=== PATIENT | female | born 1960 | race Caucasian/White ===

== ENCOUNTER 2024-12-30 10:48 | Outpatient (AMB) | payer MEDICARE, MEDICAID, SELFPAY ==
--- NOTE | 2024-12-30 10:53 | A.SPINEOV_ITS ---
Vital Signs 12/30/24 11:10 Height 5 ft 8 in Weight 190 lb BMI 28.9 Intake Visit Reasons: LBP Intake Note: Mrs. Ibanez is here today c/o low back pain that radiates to buttocks and groins then down both legs. Internal Medicine Veterinary Technician Required: No Allergies codeine Allergy (Unknown, Verified 12/30/24 11:12) Unknown diphenhydramine (From Benadryl) Allergy (Unknown, Verified 12/30/24 11:12) Unknown lurasidone (From Latuda) Allergy (Unknown, Verified 12/30/24 11:12) Unknown morphine Allergy (Unknown, Verified 12/30/24 11:12) Unknown pregabalin (From Lyrica) Allergy (Unknown, Verified 12/30/24 11:12) Unknown varenicline (From Chantix) Allergy (Unknown, Verified 12/30/24 11:12) Unknown Physical Exam Vital Signs: BMI result Body Mass Index 28.9 Assessment & Plan Assessment & Plan (1) Chronic SI joint pain: Code(s): M53.3 - Sacrococcygeal disorders, not elsewhere classified; G89.29 - Other chronic pain Category: Medical Plan Dear Catarina, Thank you for referring Mrs Ibanez to our office today. She is a very nice 64-year-old female with history of fibromyalgia, presents after 2 falls which have given her significant pain over her right buttock as well as her right groin region. The pain is aggravated with standing from a seated position, walking for any length of time. It is also very bothersome at night when she rolls over on her right side. She underwent a workup, also had physical therapy etc.. Lumbar MRI showed some degenerative disc disease but nothing that would explain her pain. She had no improvement with physical therapy. She had significant signs of SI joint etiology and on her exam, and was sent to us today for evaluation of possible SI joint fusion. At this point she has had no injections done to the SI joint. The main thing she has had done is Physical therapy and tincture of time. She tells me that she saw her orthopedic surgeon to check on her hip replacement hardware and she was told that everything there looked okay. She does take Motrin and Tylenol but has to be careful because of NAFLD the and Reagan's esophagitis. PMH: History of bipolar disorder, fibromyalgia, psoriasis, rotator cuff surgery, lung cancer, status post left lower lobe resection, disease was local and she did not require any chemotherapy or radiation. She has a history of NAFLD the, bilateral hip replacement, rotator cuff surgery, ureteral surgery that required what she describes as an open laparotomy to repair. 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 Denies any history of cardiovascular disease, stroke, bleeding disorders, blood clots, renal disease, unusual infections. Social hx: Quit smoking about 4 years ago, she takes marijuana gummies daily, does not drink alcohol Medications: Cymbalta, furosemide, Ambien, levothyroxine, lorazepam, timolol, latanoprost, albuterol, Anoro inhaler, pantoprazole, Stelara which is a shot done every 12 weeks for her psoriasis and Caplyta which is for her bipolar disorder. Allergies: Codeine, Chantix, Lyrica, Latuda, morphine and Benadryl Physical exam: Awake alert oriented, she has a very hard time just standing up from a chair, she gets tremendous pain in her groin and in her right buttock region. Positive finger Toño test, positive DAINA testing ipsilateral with pain in her right leg, groin and buttock. Reflexes are normal, motor examination is normal with the exception of pain with right hip flexion. Imaging review: Lumbar MRI done at [facility] shows some mutt-av-djagbkyi disc degeneration but no significant nerve compression. SI joints were reviewed on her CT scan of the abdomen and pelvis as well as a lumbar MRI but no significant abnormality seen. Impression: 64-year-old female, history of fibromyalgia, status post fall with pain in the right buttock region and to some degree in the right groin region. She has lumbar MRI showing some otbx-an-wzzjxwdd degenerative disc disease but no sign of disc herniation or anything that would explain pain in the right buttock. It is very localized and is aggravated with hip movements including DAINA testing. She was told that her hip replacement surgery hardware was fine. She could be dealing with just soft tissue injury from the fall, but does have some features of SI joint instability or inflammation as outlined above. The way we could attempt to decipher this a little better is to get an injection in the right SI joint. She did have significant hair loss in the past with cortisone injections. She is willing to go back on [facility] to get her hair back if needed after the shot because the pain is that bad that it affects her life in every way. I am wondering if we could just do a lidocaine injection into the joint as an alternative? If we can get 2 injections with 80% improvement, Dr. Ferrell usually will offer SI joint fusion. I will refer her to Dr. Carter who she has seen in the past and had a good relationship with. I will see her back after the 2 SI joint injections. Thank you for allowing us to care for your patient. The total time spent with this visit with this patient was 45 minutes reviewing history, physical exam, lumbar imaging review, and implementation of treatment plan or further diagnostic testing Miko Ferrell MD,PhD [facility] Orders: Referrals Physiatry Referral G89.29 - Other chronic pain, M53.3 - Sacrococcygeal disorders, not elsewhere classified Coding Level of Care Code New Pt Level 4 (67726) Diagnoses Chronic SI joint pain M53.3; G89.29
[2024-12-30 11:10] VITALS: BMI 28.9
--- OUTSIDE RECORDS SUMMARY | 2024-12-30 13:17 | XMS_ITS | Clinical Summary ---
Author Organization [facility] Address [address] [place] [address] Phone Care Team Providers Care Welding Supervisor Name Role Phone Kyung Billy MD Primary Care Prov ider Allergies Active Allergy Reactions Criticality Noted Date Comments Clonidine Other 01/29/2007 bradycardia Codeine 01/03/2005 epigrastric pain Diphenhydramine Hives 04/26/2010 Gabapentin Hallucinations 11/24/2016 Morphine 05/09/2024 Pregabalin Diarrhea 01/29/2007 Sulfacetamide Sodium Rash 01/03/2005 Varenicline Rash 02/25/2007 Medications albuterol HFA (PROAIR HFA ; PROVENTIL HFA ; VENTOLIN HFA) 90 mcg/actuation inhaler Inhale 1 puff by mouth. 09/14/19 24 Active betamethasone, augmented, (DIPROLENE-AF) 0.05 % cream APPLY CREAM TOPICALLY TO AFFECTED AREA TWICE DAILY FOR 2 WEEKS 03/12/19 23 Active DULoxetine (CYMBALTA) [address] capsule Take 1 capsule (30 mg total) by mouth 1 (one) time each day. Active LORazepam (ATIVAN) 1 mg tablet Take 1 tablet (1 mg total) by mouth 2 (two) times a day. Active umeclidinium-burt anteroL (Anoro Ellipta) 62.5-25 mcg/actuation inhaler Inhale 1 puff by mouth. 05/09/19 24 Active zolpidem CR (AMBIEN CR) 12.5 mg CR tablet Take 1 tablet (12.5 mg total) by mouth. Active pantoprazole (PROTONIX) 40 mg EC tablet Take 1 tablet (40 mg total) by mouth 2 (two) times a day. Take on empty stomach, wait 30 mins and then eat to activate the medication- before breakfast and supper 60 each 04/16/19 25 Active ondansetron (ZOFRAN) 4 mg tabletIndication s:Other fatigue,Decrease d appetite,Gastroe sophageal reflux disease with esophagitis without hemorrhage,Abdom inal bloating,Constip ation, unspecified constipation type,Depression, unspecified depression type,Nausea,Delong ett's esophagus without dysplasia Take 1 tablet (4 mg total) by mouth 3 (three) times a day. 60 tablet 04/16/19 25 Active levothyroxine (SYNTHROID, LEVOTHROID) 100 mcg tablet take 1 tablet Monday to Monday and 1-1/2 tablets on Sundays. 90 each 3 06/21/19 25 Active Caplyta 42 mg capsule 07/19/19 25 Active ursodioL (ACTIGALL) 300 mg capsuleIndicatio ns:Antimitochond rial antibody positive Take 2 capsules (600 mg total) by mouth 1 (one) time each day. 180 each 1 07/31/19 25 025 Active latanoprost (XALATAN) 0.005 % ophthalmic solution Administer 1 drop into both eyes 1 (one) time each day. 2.5 mL 08/20/19 25 Active timolol (TIMOPTIC) 0.5 % ophthalmic solution Administer 1 drop into both eyes 1 (one) time each day. 10 mL 08/20/19 25 Active QUEtiapine (SEROquel) 25 mg tablet Take 1 tablet (25 mg total) by mouth. at bedtime 08/21/19 25 Active cyclobenzaprine (FLEXERIL) 10 mg tablet Take 1 tablet (10 mg total) by mouth 2 (two) times a day if needed for muscle spasms for up to 10 days. 20 tablet 11/13/19 25 Active furosemide (LASIX) 20 mg tablet Take 1 tablet by mouth once daily 90 tablet 11/29/19 25 Active Stelara 45 mg/0.5 mL syringe Inject 0.5 mL (45 mg total) under the skin every 3 (three) months. 11/19/19 Active ustekinumab (Stelara) 90 mg/mL syringe 12/14/19 22 Discontinued polyethylene glycol (MIRALAX) 17 gram packet Take 17 g by mouth 1 (one) time each day. 510 g 11 04/16/19 Discontinued tiZANidine (ZANAFLEX) 4 mg tablet Take 1 tablet (4 mg total) by mouth 3 (three) times a day if needed for muscle spasms. 30 tablet 1 09/19/19 25 Discontinued QUEtiapine XR (SEROquel XR) 200 mg 24 hr tablet TAKE 1 TABLET BY MOUTH 3 HOURS BEFORE BEDTIME DIRECTED 04/04/19 Discontinued lidocaine (LIDODERM) 5 % patch Apply 1 patch topically 1 (one) time each day. Remove & discard patch within 12 hours or as directed by MD. Wear 12 hours on and then 12 hours off. 60 each 10/24/19 25 Discontinued bisacodyL (DULCOLAX) 5 mg EC tablet Take 1 tablet (5 mg total) by mouth 1 (one) time each day if needed for constipation. Do not crush, chew, or split. 30 tablet 11/13/19 25 Discontinued lidocaine 4 % patch Apply 1 patch topically 1 (one) time each day. 30 each 11/13/19 25 bisacodyL (DULCOLAX) 5 mg EC tablet TAKE 1 TABLET BY MOUTH EACH DAY IF NEEDED FOR CONSTIPATION. DO NOT CRUSH, CHEW, OR SPLIT. 30 tablet 12/21/19 25 Discontinued Active Problems Problem Noted Date Diagnosed Date Sacroiliitis, not elsewhere classified (CMS/HCC V24) 10/01/2024 Assessment & Plan (10/01/2024 5:05 PM EDT): Ms. Ibanez describes right sided low back pain with radiation to the groin, lateral and anterior thigh to the knee crossing over at the guillen. She has numbness in the toes of both lower extremities. She had exquisite pain with palpation of the right SI joint. Hip mechanical testing on the right side did reproduce her symptoms. She had pain with a Gaenslen's test and an SI joint compression test. We talked about sacroiliitis. I explained that treatment options included an SI belt, physical therapy and a steroid injection. She said that she was not a candidate for steroid injection because she had had alopecia associated with steroid injections on several occasions and was not willing to try that again. I told her that a final option was an SI joint fusion but that they might not consider that without a successful trial with a steroid injection. At any rate, I gave her a prescription for an SI joint belt. She will start taking NSAIDs. She excepted a prescription for physical therapy directed at the SI joint. She will follow-up with us on an as-needed basis. Chronic pain 09/20/2024 Obstructive sleep apnea 05/23/2024 History of lung cancer 01/27/2024 Assessment & Plan (08/03/2024 11:57 AM EDT): 63 y/o female who on July 06, 2022 underwent a robotic left lower lobectomy for stage 1 acinar pulmonary adenocarcinoma (pT1a, pN0). Her most recent chest CT scan obtained on July 26, 2024 continues to show a few scattered stable nodules (less than 5mm, stable in appearances), more specifically a stable groundglass nodule at the left apex measuring 8 mm. There are no new or worsening pulmonary nodules or mediastinal lymphadenopathy to suggest recurrence of her disease at this time. She was educated about pulmonary nodules and informed that while her current nodules do remain stable that does not mean that these are not possible cancer cells and that we will continue to monitor them with continued chest CT surveillance. Her next chest CT surveillance scan will be due in 6 months time which will be December 2024 and have a visit at the thoracic surgery department thereafter to discuss results. She was instructed to call the office prior to her next appointment with any concerns or questions. Assessment & Plan (01/27/2024 1:42 PM EST): 63-year-old female who on July 06, 2022 underwent a robotic left lower lobectomy for stage I acinar pulmonary adenocarcinoma (pT1a, PN 0). Her most recent chest CT scan formed in December 2023 continues to show scattered sub-5 mm solid pulmonary nodules which remain stable as well as a left upper lobe groundglass nodule which also remained stable. There are no new or worsening pulmonary nodules or mediastinal lymphadenopathy to suggest recurrence of her disease at this time. She was educated about pulmonary nodules and informed that while her current nodules do remain stable that does not mean that these are not possible cancer cells and that we will continue to monitor them with continued chest CT surveillance. Her next chest CT surveillance scan will be due in 6 months time which will be June 2024 and have a visit at the thoracic surgery department thereafter to discuss results. Prediabetes 12/07/2023 Assessment & Plan (12/21/2024 9:10 PM EDT): Recommended to follow a low carb diet, will recheck A1C. Continue to monitor. Assessment & Plan (06/20/2024 10:03 AM EDT): Orders: Hemoglobin A1c; Future Class 1 obesity due to exces s calories with serious comorbidity and body mass index (BMI) of 34.0 to 34.9 in adult 12/07/2023 Reagan esophagus 12/07/2023 History of total left hip replacement 03/02/2023 Grade I diastolic dysfunction 02/03/2023 Arthritis of hip 12/16/2022 Pulmonary nodule 08/12/2021 Overview (11/29/2023): Last Assessment & Plan: Ms. Ibanez is a 61 y/o female who is part of the [employer] who had a prior navigational biopsy on 08/20/21 without definitive diagnosis now presents for her 3 month follow-up CT scan which was performed on 06/15/[address]. [address] scan shows slight enlargement in the 7 mm LLL nodule which now measures 10 mm X 5.7mm X 8 mm. This has continued to increase in size since 2019. Patient and would like this removed. After speaking with Dr. Rowe, he is able to offer her a diagnostic Robotic VATS with left lower superior segmentectomy and possible left lower lobectomy if malignancy is confirmed. I spoke with the patient and her daughter and offered her an office visit to discuss further with Dr. Rowe but they declined and said they would like to proceed with scheduling surgery. I did answer their questions and told the patient's daughter that if anyone in the family has any questions, please do not hesitate to contact the office. Otherwise, the Thoracic Surgery office will contact her with a surgical date. NAFLD (nonalcoholic fatty liver disease) 021 Assessment & Plan (08/19/2024 4:08 PM EDT): Chronic obstructive pulmonar y disease ([facility] V24, [facility] V28) 07/31/2019 Assessment & Plan (06/20/2024 10:03 AM EDT): Assessment & Plan (03/14/2024 1:02 PM EST): COPD stable, no recent exacerbations. On albuterol as needed and an oral Ellipta. Recommended to continue same medications. Ground glass opacity present on imaging of lung 07/31/2019 Overview (11/29/2023): Followed by CT Last Assessment & Plan: 61-year-old woman former smoker with strong family history of lung cancer now with a stable groundglass nodule in the superior segment of the left lower lobe. 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 Options moving forward would be for continued observation which would be a 6-month follow-up CT scan of the chest versus surgical resection which would require at least a superior segmentectomy for diagnostic purposes and possible lobectomy for turned out to be a malignancy. After a lengthy discussion she opted for continued observation understanding the risks going along with that. I do think this is quite reasonable given its appearance and stability over the past 3 months. Malignant melanoma of right lower extremity including hip ([facility] V24, [facility] V28) 03/22/2018 Mild cognitive impairment 01/05/2017 Overview (11/29/2023): Neuropsych 12/31/16 - MCI could be related to sz d/o, psych d/o and hx of ECT, may also be some mental slowing as a result of medication. 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 Neuro - Dr. Zhang. EEG - left temporal irritability. Prev on Trileptal then Keppra. Frequent seizures 2015 - Dr. Martinez - EEG with hyperventilation-evoked episode - no epileptic activity. Advised taper Keppra and f/u with Psych. 10/2016 - Dr. Martinez - ordered VEP, somatosensory evoked potential UEs and LEs, EPs r/o MS, neuropsych testing Insomnia 10/20/2011 Idiopathic retroperitoneal fibrosis 06/07/2011 Overview (11/29/2023): Presented as ureteral blockage, s/p ureterolysis, Workup by Uro, no malignancy Cervical disc herniation 08/06/2010 Lumbar facet arthropathy 08/06/2010 Herniated lumbar intervertebral disc 08/10/2008 Bipolar affective disorder ([facility] V24, [facility] V28) 06/25/2008 Assessment & Plan (08/19/2024 4:08 PM EDT): PTSD (post-traumatic stress disorder) 05/26/2008 Fibromyalgia 08/03/2007 Esophageal reflux 01/07/2005 Hypothyroidism 01/07/2005 Assessment & Plan (12/21/2024 9:10 PM EDT): Currently on Levothyroxine 100mcg Mon to Sat, 150 Sundays. Will recheck levels. Orders: Thyroid stimulating hormone; Future Assessment & Plan (06/20/2024 10:03 AM EDT): Orders: Vitamin B12; Future Assessment & Plan (03/14/2024 1:02 PM EST): Currently on levothyroxine 112 mcg a day. Will check a new TSH today. Orders: Thyroid stimulating hormone; Future Iron deficiency anemia 01/07/2005 Resolved Problems Problem Noted Date Diagnosed Date Resolved Date Intercostal neuralgia 09/20/20242024 Elevated LFTs 12/07/2023 09/23/2024 Diffuse otitis externa of both ears 10/19/2023 09/23/2024 Otorrhea 10/19/2023 09/23/2024 Exostosis of both external auditory canals 07/06/2023 09/23/2024 Overview (09/20/2024): Exostosis of external canal, bilateral; Note: Date Diagnosed: 07/06/2023 2:36 PM (H61.813) Infective otitis externa of both ears 07/06/2023 09/23/2024 Overview (09/20/2024): Other infective otitis externa, bilateral; Note: Date Diagnosed: 07/06/2023 2:36 PM (H60.393) Osteoarthritis of right hip 03/31/2023 09/23/2024 Ear itching 02/03/2023 09/23/2024 Ear lump, left 02/03/2023 09/23/2024 Osteoarthritis of left hip 12/16/2022 0 09/23/2024 Lyme disease 10/22/2007 09/23/2024 Urinary frequency 01/29/2007 09/23/2024 Encounters Date Type Department Care Team Description 12/22/2024 Results Follow-Up Adult Medicine [address] [phone] Kyung Guerra MD 12/20/2024 1:15 PM EDT Office Visit Adult Medicine [address] [phone] Kyung Guerra MD Hypothyroidism, unspecified type (Primary Dx); Prediabetes; Screening for depression 12/06/2024 Telephone [facility] [address] [phone] Stephanie Elaine MA 12/02/2024 Telephone [facility] [address] [phone] Stephanie Elaine MA 11/12/2024 9:04 PM EDT - 11/12/2024 9:58 PM EDT Emergency [facility] Emergency [address] [place] [address] Julian West MD Ground-level fall (Primary Dx); Contusion of right elbow, initial encounter; Contusion, back, left, initial encounter Discharge Disposition: Home or Self Care 11/12/2024 Telephone Adult Medicine [facility] [address] [place] [phone] Kyung Guerra MD 10/22/2024 Telephone Neurosurgery [facility] [address] [phone] Stephanie Elaine MA 10/01/2024 2:00 PM EDT Consult [facility] [address] [phone] Patirck Hilliard PA Sacroiliitis, not elsewhere classified (CMS/HCC V24) (Primary Dx) from Last 3 Months Immunizations Immunization Administration Dates Next Due Anthrax 12/18/2021 COVID-19 (Moderna/Spikevax) 12yo and older 11/29/2022 Influenza Quadravalent, MDCK , 0.5ml, preservative free (Flucelvax) 6mo and older 11/25/2020,11/17/2017 Influenza Quadravalent, MDCK , 0.5ml, with preservative (Flucelvax) 6mo and older 12/19/2016 Influenza Quadravalent, elin mbinant, 0.5ml, preservative free (Flublok) 18yo and older 11/29/2022,11/27/2021,12/05/2019 Influenza Quadrivalent, 0.5m l, preservative free (Fluarix; FluLaval; Fluzone) ages 6mo and older (Afluria) 3yo and older 11/23/2018 Influenza trivalent, with pr eservative (Fluzone; Afluria) 6mo and older 11/27/2021,12/05/2019,11/23/2018,03/01,12/04/2014,01/01/2014,12/06/2011 ,12/02/2010,12/07/2009 Influenza, Unspecified 11/29/2022,11/27/2021 Moderna SARS-CoV-2 COVID-19, mRNA, LNP-S, preservative free 11/27/2021,11/02/2020 Pfizer (ages 12 & older) Biv alent, COVID-19 11/27/2021 Pfizer SARS-CoV-2 COVID-19, mRNA, LNP-S, preservative free 11/29/2022 Pneumococcal polysaccharide 23 valent (Pneumovax 23) 2yo and older 04/27/2021 Td Tetanus diptheria (Tdvax) 7yo and older 11/25/2020,09/08/1996 Tdap Tetanus diptheria acell ular pertussis (Boostrix; Adacel) 7yo and older 05/22/2008 Zoster recombinant (Shingrix ) 19yo and older 08/16/2021,05/30/2021 Surgical History Surgery Date Site/Laterality Comments CHOLECYSTECTOMY PROCEDURE:CHOLECYSTECTOMY ANKLE FRACTURE SURGERY PROCEDURE:ANKLE FRACTURE SURGERY HYSTERECTOMY PROCEDURE:HYSTERECTOMY SHOULDER SURGERY PROCEDURE:SHOULDER SURGERY OTHER SURGICAL HISTORY 06/30/19 05 PROCEDURE: MAMMOGRAM OTHER SURGICAL HISTORY 04/15/19 05 PROCEDURE: PAP SMEAR (1 SLIDE) OTHER SURGICAL HISTORY 07/18/19 05 PROCEDURE: AL TOTAL ABDOMINAL HYSTERECT W/WO RMVL TUBE OVARY COLONOSCOPY 07/30/19 04 PROCEDURE: HISTORICAL COLONOSCOPY; COMMENT: Negative ESOPHAGOGASTRODUODENOSCOPY 07/30/19 04 PROCEDURE: AL ESOPHAGOGASTRODUODENOSCOPY TRANSORAL DIAGNOSTIC; COMMENT: Negative CHOLECYSTECTOMY 02/27/18 84 PROCEDURE: AL CHOLECYSTECTOMY OTHER SURGICAL HISTORY PROCEDURE: HISTORY OTHER; COMMENT: ureterolysis - Dx retroperitoneal fibrosis UPPER GASTROINTESTINAL ENDOSCOPY 08/10/19 14 N/A PROCEDURE: AL UPPER GI ENDOSCOPY PERFORMED; COMMENT: Localized antral gastritis: Biopsies negative for H. pylori. COLONOSCOPY 05/13/19 16 PROCEDURE: HISTORICAL COLONOSCOPY; COMMENT: [facility]; diminutive tubular adenoma 2. COLONOSCOPY 06/12/19 21 N/A PROCEDURE: HISTORICAL COLONOSCOPY; COMMENT: 5 mm sigmoid colon polyp: Pathology = hyperplastic. OTHER SURGICAL HISTORY 07/07/19 23 Left PROCEDURE: AL THORACOSCOPY W/LOBECTOMY SINGLE LOBE; COMMENT: LLL Medical History Medical History Date Comments Cancer (CMS/HCC V24, [facility] V28) DX:Cancer ([facility]) COPD (chronic obstructive pu lmonary disease) ([facility] V24, [facility] V28) DX:COPD (chronic o bstructive pulmonary disease) ([facility]) Anemia DX:Anemia Hypothyroidism DX:Hypothyroidis m GERD (gastroesophageal reflu x disease) DX:GERD (gastroesophageal re flux disease) Iron deficiency anemia, unspecified DX:Iron deficiency anemia, unspecified Cervical spondylosis without myelopathy 2003 DX:Cervical spondylosis with out myelopathy; COMMENT: cervical disc surgery Myopia DX:Myopia Presbyopia DX:Presbyopia Astigmatism, unspecified DX:Asti gmatism, unspecified Tear film insufficiency, unspecified DX:Tear film insufficiency, unspecified Adjustment disorder with mix ed anxiety and depressed mood DX:Adjustment disorder with mixed anxiety and depressed mood Fibromyalgia 08/03/2007 DX:Fibromyalgia; COMMENT: On chronic narcotics in the past, +MJ in urine Esophageal reflux DX:Esophageal reflux Unspecified hypothyroidism DX:Un specified hypothyroidism Melanocytic nevus 10/05/2011 DX:Melanocytic nevus Syncope 10/20/2011 DX:Syncope Insomnia 10/20/2011 DX:Insomnia Unspecified glaucoma(365.9) DX:U nspecified glaucoma(365.9) Medical marijuana use 04/15/2015 DX:Medical marijuana use Personal history of malignan t neoplasm of ovary DX:Personal history of malig nant neoplasm of ovary History of colonic polyps 05/26/2015 DX:His tory of colonic polyps; COMMENT: Small tubular adenomas 2 at colonoscopy 05/13/2015, next colonoscopy 5 years. History of dysplastic nevus 07/05/2016 DX:H istory of dysplastic nevus; COMMENT: 01/08 left breast Psoriasis 07/05/2016 DX:Psoriasis Superficial spreading melano ma ([facility] V24, [facility] V28) 12/05/2017 DX:Superficial spreading me lanoma ([facility]); COMMENT: Right medial heel 11/2017 - -SUBTYPE: SUPERFICIAL SPREADING -DEPTH OF INVASION ([place]): 0.9 MM. (AT LEAST) -JUAN LEVEL: IV (AT LEAST) Malignant melanoma of foot, right ([facility] V24, [facility] V28) 02/08/2018 DX:Malignant melanoma of fo ot, right ([facility]); COMMENT: Right medial heel 11/2017 - -SUBTYPE: SUPERFICIAL SPREADING -DEPTH OF INVASION ([place]): 0.9 MM. (AT LEAST) -JUAN LEVEL: IV (AT LEAST) S/p wide excision and sentinel LN bx, 01/31/19 Dr Espitia Ascending aorta dilatation ( [facility] V24) 10/05/2020 DX:Ascending aorta dilatatio n (HCC); COMMENT: 3.7. cm 09/25/2020 ECHO Ascending aorta dilatation ( [facility] V24) 10/05/2020 DX:Ascending aorta dilatatio n (HCC); COMMENT: 3.7. cm 09/25/2020 ECHO: EF 60-65% Lung cancer ([facility] V24, [facility] V28) DX:Lung cancer (HCC) Status post lobectomy of lung DX :Status post lobectomy of lung Dysphagia DX:Dysphagia Abdominal bloating DX:Abdominal bloating Chest wall pain following surgery DX:Chest wall pain following surgery Esophageal dysmotility DX:Esopha geal dysmotility Hiatal hernia DX:Hiatal hernia Nausea DX:Nausea History of lung surgery DX:Histo ry of lung surgery Exostosis of both external a uditory canals 07/06/2023 Exostosis of external canal, bilateral; Note: Date Diagnosed: 07/06/2023 2:36 PM (H61.813) Lyme disease 10/22/2007 Arthritis Autoimmune disorder ([facility] V24) Anxiety Seizures ([facility] V24, [facility] V28) Family History Medical History Relation Name Comments Glaucoma Aunt Arthritis Brother 1 Cancer Brother 1 Hypertension Brother 1 Other: brain tumor Brother 2 Brain cancer Brother 3 Cancer Father Diabetes Father Lymphoma Father diabetes, CHF Arthritis Mother Cancer Mother Heart attack Mother Hypertension Mother Arthritis Sister Cancer Sister Other: Atrial Fibrillation Son Colon cancer Uncle paternal uncle, dx at age < 60. Breast cancer Neg Hx Relation Name Status Comments Aunt Brother 1 Brother 2 (Age 46) Brother 3 Father (Age 80) Mother (Age 82) Sister Son Alive Uncle Social History Tobacco Use Types Packs/Day Years Used Date Smoking Tobacco: Former Cigarettes 0.4 44.4 0 02/28/1976 - 07/14/2020 Smokeless Tobacco: Never Tobacco Cessation:Counseling Given: Not Answered Alcohol Use Standard Drinks/Week Comments No 0 (1 standard drink = 0.6 oz pur e alcohol) Housing Instability Answer Date Recorde d Are you worried that in the next 2 months you may not have stable housing? No 07/29/2024 Food Access & Nutrition Answer Date Rec orded Do you have access to a vari ety of food including fruits and vegetables? Yes 07/29/2024 Access to Healthcare Answer Date Record ed Within the last 3 months, ho w many times did you visit the emergency department for your medical care? 1 07/29/2024 Health Literacy Answer Date Recorded How often do you need to hav e someone help you when you read instructions, pamphlets, or other written material from your doctor or pharmacy? Never 07/29/2024 Caregiver: How often do you need to have someone help you when you read instructions, pamphlets, or other written material from your doctor or pharmacy? Not on file 07/29/2024 Financial Risk Answer Date Recorded How hard is it for you to pa y for the very basics like food, housing, medical care, and air conditioning / heating? Not very hard 07/29/2024 Transportation Answer Date Recorded Has the lack of transportati on kept you from meetings, work, or from getting things needed for daily living? No Has the lack of transportati on kept you from medical appointments or from getting medications? No 07/29/2024 Social Isolation Answer Date Recorded How often do you feel lonely or isolated from th ose around you? Never 07/29/2024 Food Risk Answer Date Recorded Within the past 12 months we worried whether our food would run out before we got money to buy more. Never true 07/29/2024 Within the past 12 months th e food we bought just didn't last and we didn't have money to get more. Never true 07/29/2024 Dependent Care Answer Date Recorded Do you need help finding or paying for care for your loved ones. For example, early childhood coordinator or elderly care for an older adult? No 07/29/2024 Education Answer Date Recorded Do you think completing more education or training, like finishing a GED, going to college, or learning a trade, would be helpful for you? No 07/29/2024 Employment and Income Answer Date Recor ded During the last four weeks, have you been actively looking for work? No 07/29/2024 Living Situation Answer Date Recorded What is your living situation? Unrecognized valu e 07/29/2024 Comments No Sex and Gender Information Value Date Recorded Sex Assigned at Female 03/27/2024 8:49 AM EST Legal Sex Female 3:18 AM EST Gender Identity Female 03/27/2024 8:49 AM EST Sexual Orientation Straight 03/27/2024 8: 49 AM EST Obstetrics History Last Filed Vital Signs Vital Sign Reading Time Taken Comments Blood Pressure 133/75 12/20/2024 12:52 PM EDT Pulse 79 12/20/2024 12:52 PM EDT Temperature 36.7 C (98 F) 12/20/2024 12:52 PM EDT Respiratory Rate 14 12/20/2024 12:52 PM EDT Oxygen Saturation 96% 12/20/2024 12:52 PM EDT Inhaled Oxygen Concentration - - Weight 87.6 kg (193 lb 3.2 oz) 12/20/2024 12:52 PM EDT Height 172.7 cm (5' 8 ) 12/20/2024 12:52 PM EDT Body Mass Index 29.38 12/20/2024 12:52 PM EDT Plan of Treatment Upcoming Encounters Date Type Department Care Team (Late st Contact Info) Description 12/31/2024 8:30 AM EST Appointment [facility] Scan [address] [place] [phone] 01/02/2025 11:00 AM EST Office Visit Pulmonology - [place] [address] [facility] [address] [place] [phone] Brina Howe MD [address] [place] [phone] 01/07/2025 10:30 AM EST Office Visit Thoracic Surgery - [place] [address] [facility] [address] [place] [phone] Haley Cee NP [address] [place] [phone] 06/23/2025 11:30 AM EDT Office Visit Adult Medicine [address] [phone] Tamra Ray PA [address] [place], [place] Health Maintenance Due Date Last Done Comments Hepatitis A Vaccines (1 of 2 - Risk 2-dose series) 10/08/1979 RSV Immunization Adult Patients (1 - Risk 50-74 years 1-dose series) 2010 Hepatitis B Vaccines (1 of 3 - Risk 3-dose series) 2020 HIV Screening 02/03/2022 Medicare Annual Wellness Visit 02/03/2022 Pneumococcal Vaccine: 50+ Years (2 of 2 - PCV) 04/27/2022 04/27/2021 Breast Cancer Screening 12/21/2024 12/22/19, 12/22/2023, 05/03/2021, Additional history exists COVID-19 Vaccine (3 - Pfizer risk series) 12/31/2024 12/03/2024, 11/29/2022, 11/29/2022, Additional history exists Social Influencers of Health Screening 07/29/2025 07/29/2024 Cholesterol Screening (Lipid Panel) 07/28/2029 07/28/2024, 02/02/2024, 01/03/2023 Colorectal Cancer Screening: Colonoscopy 06/11/2030 06/11/2020 DTaP,Tdap,and Td Vaccines (4 - Td or Tdap) 11/25/2030 11/25/2020, 05/22/2008, 09/08/1996 Zoster Vaccines Completed 08/16/2021, 05/30/2021 Hepatitis C Screening Completed 02/02/2024, 020 Influenza Vaccine Completed 12/03/2024, , 11/29/2022, Additional history exists Depression Screening Completed 12/20/2024, 09/21/19 HIB Vaccines Aged Out No longer eligi ble based on patient's age to complete this topic HPV Vaccines Aged Out No longer eligi ble based on patient's age to complete this topic IPV Vaccines Aged Out No longer eligi ble based on patient's age to complete this topic MMR Vaccines Aged Out No longer eligi ble based on patient's age to complete this topic Meningococcal ACWY Vaccine Aged Out N o longer eligible based on patient's age to complete this topic Meningococcal B Vaccine Aged Out No l onger eligible based on patient's age to complete this topic RSV Immunization Patients Under 20 months Aged Out No longer eligible based on patient's age to complete this topic Varicella Vaccines Aged Out No longer eligible based on patient's age to complete this topic Procedures Procedure Name Priority Date/Time Associated Diagnosis Comments HEMOGLOBIN A1C Routine 12/20/2024 1:36 PM EDT Prediabetes THYROID STIMULATING HORMONE Routine 12/20/2024 1:36 PM EDT Hypothyroidism, unspecified type CBC WITH AUTO DIFFERENTIAL STAT 11/12/2024 9:28 PM EDT PROLACTIN STAT 11/12/2024 9:28 PM EDT CBC AND DIFFERENTIAL STAT 11/12/2024 9:28 PM EDT COMPREHENSIVE METABOLIC PANEL STAT 11/12/2024 9:[address] CERVICAL SPINE WO CONTRAST STAT 11/12/2024 8:[address] HEAD WO CONTRAST STAT 11/12/2024 8 :49 PM EDT LIPID PANEL WITH REFLEX TO DIRECT LDL Add-On 07/28/2024 10:54 AM EDT HEPATITIS C ANTIBODY Routine 02/02/2024 9:16 AM EST Elevated liver enzymes SCREENING MAMMOGRAPHY BI 2-VIEW BREAST INC CAD Routine 12/22/2023 11:20 AM EDT Encounter for screening mammogram for malignant neoplasm of breast DEPRESSION SCREENING Routine 09/21/2023 COLONOSCOPY Routine 06/11/2020 from Last 3 Months or Most Recently Relevant to Health Maintenance Results * Thyroid stimulating hormone (12/20/2024 1:36 PM EDT) Pathologist [facility] TSH 3.84 0.40 - 4.00 mcIU/mL LAB CHEMISTRY METHOD 12/20/2024 6:05 PM EDT [facility] Blood Venous blood specimen / Unknown Venipuncture / Unknown 12/20/2024 1:36 PM EDT 12/20/2024 1:36 PM EDT Kyung Billy MD LAB BLOOD ORDERABL ES Final Result Performing Organization Address [facility]/ZIP Co de Phone Number [facility] [address] [place] [address], [place] [phone] * Hemoglobin A1c (12/20/2024 1:36 PM EDT) [facility] Hemoglobin A1C 5.6 <6.5 % LAB CHEMISTRY METHOD 12/20/2024 9:01 PM EDT [facility] Mean Bld Glu Estim. 114 mg/dL LAB CHEMISTRY METHOD 12/20/2024 9:01 PM EDT [facility] Blood Venous blood specimen / Unknown Venipuncture / Unknown 12/20/2024 1:36 PM EDT 12/20/2024 1:36 PM EDT Kyung Billy MD LAB BLOOD ORDERABL ES Final Result Performing Organization Address City/[facility]/ZIP Co de Phone Number [facility] [address] [place] [address], [place] [phone] * (ABNORMAL) CBC auto differential (11/12/2024 9:28 PM EDT) [facility] WBC 12.2(H) 4.8 - 10.8 K/[facility] LAB HEMETOLOGY METHOD 11/12/2024 9:51 PM EDT [facility] RBC 4.70 3.80 - 4.80 M/[facility] LAB HEMETOLOGY METHOD 11/12/2024 9:51 PM EDT [facility] Hemoglobin 13.6 11.5 - 16.0 g/dL LAB HEMETOLOGY METHOD 11/12/2024 9:51 PM EDT [facility] Hematocrit 42.1 35.0 - 47.0 % LAB HEMETOLOGY METHOD 11/12/2024 9:51 PM EDT [facility] MCV 90.3 79.0 - 98.0 FL LAB HEMETOLOGY METHOD 11/12/2024 9:51 PM EDT [facility] MCH 29.2 27.0 - 32.0 pcg LAB HEMETOLOGY METHOD 11/12/2024 9:51 PM EDT [facility] MCHC 32.3 32.0 - 37.0 g/dL LAB HEMETOLOGY METHOD 11/12/2024 9:51 PM EDT [facility] RDW 11.9 11.0 - 15.0 % LAB HEMETOLOGY METHOD 11/12/2024 9:51 PM EDT [facility] Platelets 412(H) 130 - 400 K/mcL LAB HEMETOLOGY METHOD 11/12/2024 9:51 PM EDT [facility] MPV 11.1(H) 7.0 - 11.0 FL LAB HEMETOLOGY METHOD 11/12/2024 9:51 [facility] NRBC 0.0 <1.0 % LAB HEMETOLOGY METHOD 11/12/2024 9:51 PM EDT [facility] NRBC Absolute 0.00 <0.10 K/mcL LAB HEMETOLOGY METHOD 11/12/2024 9:51 PM EDT [facility] Neutrophils Relative 60.5 % LAB HEMETOLOGY METHOD 11/12/2024 9:51 PM EDT [facility] Lymphocytes Relative 30.5 % LAB HEMETOLOGY METHOD 11/12/2024 9:51 PM EDT [facility] Monocytes Relative 6.0 % LAB HEMETOLOGY METHOD 11/12/2024 9:51 PM EDT [facility] Eosinophils Relative 2.2 % LAB HEMETOLOGY METHOD 11/12/2024 9:51 PM EDT [facility] Basophils Relative 0.5 % LAB HEMETOLOGY METHOD 11/12/2024 9:51 PM EDT [facility] Immature Granulocytes Relative 0.3 % LAB HEMETOLOGY METHOD 11/12/2024 9:51 PM EDT [facility] Neutrophils Absolute 7.38(H) 1.50 - 7.00 K/mcL LAB HEMETOLOGY METHOD 11/12/2024 9:51 PM EDT [facility] Lymphocytes Absolute 3.73 1.00 - 5.00 K/mcL LAB HEMETOLOGY METHOD 11/12/2024 9:51 PM EDT [facility] Monocytes Absolute 0.73 0.20 - 1.00 K/mcL LAB HEMETOLOGY METHOD 11/12/2024 9:51 PM EDT [facility] Eosinophils Absolute 0.27 0.00 - 0.50 K/mcL LAB HEMETOLOGY METHOD 11/12/2024 9:51 PM EDT [facility] Basophils Absolute 0.06 0.00 - 0.20 K/mcL LAB HEMETOLOGY METHOD 11/12/2024 9:51 PM EDT [facility] Immature Granulocytes Absolute 0.04(H) 0.00 - 0.03 K/mcL LAB HEMETOLOGY METHOD 11/12/2024 9:51 PM EDT [facility] Blood Venous blood specimen / Unknown Venipuncture / Unknown 11/12/2024 9:28 PM EDT 11/12/2024 9:44 PM EDT us Julian West MD LAB BLOOD ORDERABLES Final Resul t [facility] [address] [place] [address], [place] [phone] * Prolactin (11/12/2024 9:28 PM EDT) [facility] Prolactin 12.00 See Comment ng/mL LAB CHEMISTRY METHOD 11/12/2024 10:15 PM EDT [facility] Comment: Prolactin Reference Ranges (ng/mL) Non 2.2 - 30.3 8.1 - 347.6 Postmenopausal 0.7 - 31.5 Blood Venous blood specimen / Unknown Venipuncture / Unknown 11/12/2024 9:28 PM EDT 11/12/2024 9:44 PM EDT Julian West MD LAB BLOOD ORDERABLES Final Resul t [facility] [address] [place] [address], [place] [phone] * Comprehensive metabolic panel (11/12/2024 9:28 PM EDT) [facility] Sodium 136 133 - 145 mmol/L LAB CHEMISTRY METHOD 11/12/2024 10:14 PM [facility] Potassium 4.5 3.5 - 5.5 mmol/L LAB CHEMISTRY METHOD 11/12/2024 10:14 PM [facility] Chloride 100 96 - 110 mmol/L LAB CHEMISTRY METHOD 11/12/2024 10:14 PM T [facility] CO2 30 21 - 32 mmol/L LAB CHEMISTRY METHOD 11/12/2024 10:14 PM [facility] Anion Gap 6 3 - 11 LAB CHEMISTRY METHOD 11/12/2024 10:14 PM [facility] Glucose 92 70 - 100 mg/dL LAB CHEMISTRY METHOD 11/12/2024 10:14 PM [facility] BUN 23 5 - 25 mg/dL LAB CHEMISTRY METHOD 11/12/2024 10:14 PM [facility] Creatinine 0.83 0.50 - 1.10 mg/dL LAB CHEMISTRY METHOD 11/12/2024 10:14 PM [facility] eGFR 79 >=60 mL/min/1. 73m2 LAB CHEMISTRY METHOD 11/12/2024 10:14 PM [facility] Comment:Calculation based on the Chronic Kidney Disease Epidemiology Collaboration (CKD-EPI) equation refit without adjustment for race. BUN/Creatinine Ratio 27.7 LAB CHEMISTRY METHOD 11/12/2024 10:14 PM [facility] Calcium 9.2 8.5 - 10.5 mg/dL LAB CHEMISTRY METHOD 11/12/2024 10:14 PM [facility] AST (SGOT) 26 10 - 42 unit/L LAB CHEMISTRY METHOD 11/12/2024 10:14 PM [facility] ALT (SGPT) 33 10 - 60 unit/L LAB CHEMISTRY METHOD 11/12/2024 10:14 PM [facility] Alkaline Phosphatase 119 42 - 121 unit/L LAB CHEMISTRY METHOD 11/12/2024 10:14 PM [facility] Total Protein 7.6 6.0 - 8.0 g/dL LAB CHEMISTRY METHOD 11/12/2024 10:14 PM [facility] Albumin 3.8 3.2 - 5.0 g/dL LAB CHEMISTRY METHOD 11/12/2024 10:14 PM [facility] Total Bilirubin 0.6 0.0 - 1.4 mg/dL LAB CHEMISTRY METHOD 11/12/2024 10:14 PM [facility] Blood Venous blood specimen / Unknown Venipuncture / Unknown 11/12/2024 9:28 PM EDT 11/12/2024 9:44 PM EDT us Julian West MD LAB BLOOD ORDERABLES Final Resul t [facility] [address] [place] [address], * CT Cervical Spine wo Contrast (11/12/2024 8:49 PM EDT) Anatomical Region Laterality Modality Spine, C-spine Computed Tomogra phy 11/12/2024 8:58 PM EDT Impressions 11/12/2024 8:58 PM EDT 1. Anterior fusion of C5-C6 C7 with cortical plate and screws noted. 2. No acute fracture or subluxation. 3. Mild multilevel degenerative changes. This document has been electronically signed by: April Lovelace MD on 11/12/2024 20:58:51 Narrative 11/12/2024 8:58 PM EDT INDICATION: Neck pain, acute, no red flags CT cervical spine without contrast Comparison: None provided Findings: Normal vertebral body alignment. Mild multilevel degenerative changes. Anterior fusion of C5-C6 C7 with cortical plate and screws noted. No acute fracture or subluxation. Visualized intracranial contents are unremarkable. Soft tissues of the neck are normal. Lung apices are clear. Procedure Note April Lovelace MD - 11/12/2024 INDICATION: Neck pain, acute, no red flags CT cervical spine without contrast Comparison: None provided Findings: Normal vertebral body alignment. Mild multilevel degenerative changes. Anterior fusion of C5-C6 C7 with cortical plate and screws noted. No acute fracture or subluxation. Visualized intracranial contents are unremarkable. Soft tissues of the neck are normal. Lung apices are clear. IMPRESSION: 1. Anterior fusion of C5-C6 C7 with cortical plate and screws noted. 2. No acute fracture or subluxation. 3. Mild multilevel degenerative changes. This document has been electronically signed by: April Lovelace MD on 11/12/2024 20:58:51 Julian West MD IM CT PROCEDURES Final Result * CT Head wo Contrast (11/12/2024 8:49 PM EDT) Anatomical Region Laterality Modality Head and Neck Computed Tomogra phy 11/12/2024 9:15 PM EDT Impressions 11/12/2024 9:15 PM EDT 1. No acute intracranial findings. This document has been electronically signed by: April Lovelace MD on 11/12/2024 21:15:06 Narrative 11/12/2024 9:15 PM EDT INDICATION: Dizziness, non-specific CT head without contrast Comparison: None provided Findings: No intra-axial mass, midline shift, hydrocephalus, or acute hemorrhage. No significant atrophy-like change or white matter disease. There is no sinus or mastoid fluid. The orbits are within normal limits. There is no acute fracture. Procedure Note April Loevlace MD - 11/12/2024 INDICATION: Dizziness, non-specific CT head without contrast Comparison: None provided Findings: No intra-axial mass, midline shift, hydrocephalus, or acute hemorrhage. No significant atrophy-like change or white matter disease. There is no sinus or mastoid fluid. The orbits are within normal limits. There is no acute fracture. IMPRESSION: 1. No acute intracranial findings. This document has been electronically signed by: April Lovelace MD on 11/12/2024 21:15:06 Julian West MD [facility] CT PROCEDURES Final Result * (ABNORMAL) Lipid panel with reflex to direct LDL (07/28/2024 10:54 AM EDT) Cholesterol 172 0 - 200 mg/dL LAB CHEMISTRY METHOD 07/28/2024 1:08 PM EDT [facility] Triglycerides 190(H) 0 - 150 mg/dL LAB CHEMISTRY METHOD 07/28/2024 1:08 PM EDT [facility] HDL 43 >=40 mg/dL LAB CHEMISTRY METHOD 07/28/2024 1:08 PM EDT [facility] LDL Calculated 91 0 - 100 mg/dL LAB CHEMISTRY METHOD 07/28/2024 1:08 PM EDT [facility] VLDL Cholesterol Tl 38 mg/dL LAB CHEMISTRY METHOD 07/28/2024 1:08 PM EDT [facility] Non HDL Chol. (LDL+VLDL) 129 <145 mg/dL LAB CHEMISTRY METHOD 07/28/2024 1:08 PM EDT [facility] Chol/HDL Ratio 4.0 0.0 - 4.4 LAB CHEMISTRY METHOD 07/28/2024 1:08 PM EDT [facility] Blood Venous blood specimen / Unknown Venipuncture / Unknown 07/28/2024 10:54 AM EDT 07/28/2024 12:01 PM EDT Filippo Dawson PA LAB BLOOD ORDERABLES Final Re sult Performing Organization Address [facility]/ZIP Co de Phone Number [facility] [address] [place] [address], [place] [phone] * Hepatitis C antibody (02/02/2024 9:16 AM EST) Hepatitis C Antibody Negative Negative LAB CHEMISTRY METHOD 02/02/2024 1:09 PM EST [facility] Blood Venous blood specimen / Unknown Venipuncture / Unknown 02/02/2024 9:16 AM EST 02/02/2024 9:16 AM EST Segundo PORTILLO LAB BLOOD ORDERABLES Final Resu lt Performing Organization Address [facility]/ZIP Co de Phone Number [facility] [address] [place] [address], [place] [phone] * SCREENING MAMMOGRAPHY BI 2-VIEW BREAST INC CAD (12/22/2023 11:20 AM EDT) Anatomical Region Laterality Modality Radiographic Keila ging 01/31/2023 1:29 PM EST Narrative 12/22/2023 6:37 PM EDT This is a summary report. The complete report is available in the patient's medical record. If you cannot access the medical record, please contact the sending organization for a detailed fax or copy. Exam: Screening mammogram Findings: Digital bilateral full-field screening mammography is performed with tomosynthesis and interpreted with the aid of computer-aided detection. Comparison is made with 05/03/2021 and 04/23/2020. Breast parenchyma is composed of scattered fibroglandular densities. No new suspicious mass, architectural distortion, or suspicious calcifications. Impression: No mammographic evidence of malignancy. BI-RADS 1 - negative [address] [id number] Procedure Note Lillie Barrios MD - 12/30/2023 This is a summary report. The complete report is available in thepatient's medical record. If you cannot access the medical record, pleasecontact the sending organization for a detailed fax or copy. Exam: Screening mammogram Findings: Digital bilateral full-field screening mammography is performedwith tomosynthesis and interpreted with the aid of computer-aideddetection. Comparison is made with 05/03/2021 and 04/23/2020. Breast parenchyma is composed of scattered fibroglandular densities. Nonew suspicious mass, architectural distortion, or suspiciouscalcifications. Impression: No mammographic evidence of malignancy. BI-RADS 1 - negative [address] [id number] Kyung Billy MD IMG XR PROCEDURES Final Result * Depression Screening (09/21/2023) Depression Screening Abstracted Historical Provider HEALTH MAINTENANCE Final Result * Colonoscopy (06/11/2020) Colonoscopy No interpreta tion,abstr acted Anatomical Region Laterality Modality Other Historical Provider HEALTH MAINTENANCE Final Result from Last 3 Months or Most Recently Relevant to Health Maintenance Insurance MEDICARE MEDICAID - [place] Care Teams Welding Supervisor Relationship Specialty Start Date End Date Kyung Billy MD [address] [place] [phone] PCP - General Internal Medicine 09/27/21
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
--- OUTSIDE RECORDS SUMMARY | 2024-12-30 13:17 | XMS_ITS | Clinical Summary ---
Author Organization [facility] Address [address] [place] [address] Care Team Providers Care Lead Technologist In Cytogenetics Name Role Phone Kyung Holley MD Primary Care Prov ider Allergies Active Allergy Reactions Criticality Noted Date Comments Diphenhydramine 02/21/2018 Clonidine 02/21/2018 Codeine 02/21/2018 Gabapentin 02/21/2018 Pregabalin 02/21/2018 Omeprazole 02/21/2018 Sulfatolamide 02/21/2018 Varenicline 02/21/2018 Medications Medication Sig Dispensed Refills Start Date End Date Status QUEtiapine (SEROquel) 12.5 MG split tablet Take 16 split tablet (200 mg total) by mouth every night at bedtime. 0 Active acitretin (SORIATANE) 25 MG capsule Take 1 capsule (25 mg total) by mouth every morning before breakfast. 0 Active bisacodyl (DULCOLAX) 5 MG EC tablet Take 1 tablet (5 mg total) by mouth daily as needed for constipation. 0 Active levothyroxine (SYNTHROID, LEVOXYL) tablet 112 mcg Take 1 tablet (112 mcg total) by mouth every morning on an empty stomach. 0 Active tiZANidine (ZANAFLEX) 4 MG tablet Take 1 tablet (4 mg total) by mouth every 6 (six) hours as needed. 0 Active mometasone (NASONEX) 50 MCG/ACT nasal spray spray or apply 2 sprays inside Nose daily. 0 Active timolol (TIMOPTIC) 0.5 % ophthalmic solution 1 drop 2 (two) times a day. 0 Active zolpidem (AMBIEN CR) 12.5 MG CR tablet Take 1 tablet (12.5 mg total) by mouth every night at bedtime as needed for sleep. 0 Active LORazepam (ATIVAN) 1 MG tablet Take 1 tablet (1 mg total) by mouth 2 (two) times a day. 0 Active ibuprofen (ADVIL,MOTRIN) 800 MG tablet Take 1 tablet (800 mg total) by mouth 2 (two) times a day. 0 Active Umeclidinium-Vilantero l 62.5-25 MCG/INH AEPB Inhale into the lungs. 0 Active ALBUTEROL IN Inhale into the lungs. 0 Active DULoxetine (CYMBALTA) DR capsule 30 mg Take 1 capsule (30 mg total) by mouth daily. 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 03/22/2018 Family History Medical History Relation Name Comments Arthritis Brother Cancer Brother Hypertension Brother Cancer Father Diabetes Father Arthritis Mother Cancer Mother Hypertension Mother Arthritis Sister Cancer Sister Relation Name Status Comments Brother Father Mother Sister Social History Tobacco Use Types Packs/Day Years Used Date Smoking Tobacco: Former Smokeless Tobacco: Never Tobacco Cessation:Counseling Given: Not Answered Alcohol Use Standard Drinks/Week Comments Yes 0 (1 standard drink = 0.6 oz pur e alcohol) wine socially Sex and Gender Information Value Date Recorded Sex Assigned at Not on file Gender Identity Not on file Sexual Orientation Not on file Job Start Date Occupation Industry Not on file Not on file Not on file Last Filed Vital Signs Vital Sign Reading Time Taken Comments Blood Pressure 117/76 10/26/2022 1:04 PM EDT Pulse 71 10/26/2022 1:04 PM EDT Temperature 36.1 C (96.9 F) 10/26/2022 1:04 PM EDT Respiratory Rate - - Oxygen Saturation 99% 10/26/2022 1:04 PM EDT Inhaled Oxygen Concentration - - Weight 92.1 kg (203 lb) 10/26/2022 1:04 PM EDT Height 172.7 cm (5' 8 ) 10/26/2022 1:04 PM EDT Body Mass Index 30.87 10/26/2022 1:04 PM EDT Plan of Treatment Health Maintenance Due Date Last Done Comments Hepatitis C Screening 1960 Depression Screening 1972 BMI Counseling 1978 Preventative Health Evaluation 1978 Cervical Cancer Screening (Pap Smear) 1981 Colon Cancer Screening (Colonoscopy) 2005 Breast Cancer Screening (Mammogram) 2010 DTap / Tdap / Td (2 - Td or Tdap) 05/22/2018 05/22/2008 Pneumococcal Vaccine (2 of 2 - PCV) 04/27/2022 04/27/2021 Pneumococcal Vaccine (2 of 2 - PCV) 04/27/2022 04/27/2021 COVID-19 Vaccine ( - season) 2024 11/29/2022, 05/26/2020, 04/28/2020 Influenza Vaccine (#1) 2024 , 12/05/2019, 11/23/2018, Additional history exists RSV Adult > 60+ Yrs or (1 - 1-dose 75+ series) 10/08/2035 Shingrix-Zoster Vaccine Completed 08/16/2021, 05/30 Hepatitis B Vaccines Aged Out No long er eligible based on patient's age to complete this topic RSV Ped < 20 months Aged Out No longe r eligible based on patient's age to complete this topic Care Teams Lead Technologist In Cytogenetics Relationship Specialty Start Date End Date Kyung Holley MD [address] [place] [address] PCP - General Internal Medicine 09/28/22
--- OUTSIDE RECORDS SUMMARY | 2024-12-30 13:17 | XMS_ITS | Clinical Summary ---
Author Organization [facility] Address [address] [place] [phone] Phone Care Team Providers Care Algology Teacher Name Role Phone Kyung Holley MD Primary Care Prov ider Allergies No known active allergies Medications No known medications Encounters Date Type Department Care Team Description 10/25/2024 2:02 PM EDT - 10/25/2024 11:59 PM EDT Hospital Encounter [facility] Anatomic Pathology [address] [place] [address] Discharge Disposition: Home or Self Care 10/14/2024 2:20 PM EDT Office Visit [address] [address] Ken Eng MD, MPH HANNON (nonalcoholic steatohepatitis) (Primary Dx); Liver fibrosis 10/14/2024 2:00 PM EDT Office Visit [address] [address] Ken Eng MD, MPH HANNON (nonalcoholic steatohepatitis) (Primary Dx) 10/14/[address] [address] Ken Eng MD, MPH from Last 3 Months Social History Tobacco Use Types Packs/Day Years Used Date Smoking Tobacco: Never Assessed Education Answer Date Recorded Are you interested in more education? Not on mark e 10/25/2024 Are you concerned about learning? Not on file 10/25/2024 No 10/25/2024 No 10/25/2024 Digital Access Answer Date Recorded No 10/25/2024 No 10/25/2024 Reliable internet access at home? Not on file 10/25/2024 Device with a working camera? Not on file Comments Unknown Sex and Gender Information Value Date Recorded Sex Assigned at Female 10/29/2024 2:51 PM EDT Legal Sex Female 1:59 PM EDT Gender Identity Female 10/29/2024 2:51 PM EDT Sexual Orientation Straight 10/29/2024 2: 51 PM EDT Last Filed Vital Signs Vital Sign Reading Time Taken Comments Blood Pressure 155/79 10/14/2024 2:16 PM EDT Pulse 80 10/14/2024 2:16 PM EDT Temperature - - Respiratory Rate - - Oxygen Saturation 99% 10/14/2024 2:16 PM EDT Inhaled Oxygen Concentration - - Weight 87.1 kg (192 lb) 10/14/2024 2:14 PM EDT Height 172.7 cm (5' 8 ) 10/14/2024 2:14 PM EDT Body Mass Index 29.19 10/14/2024 2:14 PM EDT Plan of Treatment Upcoming Encounters Date Type Department Care Team (Late st Contact Info) Description 04/16/2025 1:00 PM EST Telemedicine [facility] [address] [place] [address] Ken Eng MD, MPH [address] [place] [address] [email or web address] Health Maintenance Due Date Last Done Comments DEPRESSION SCREENING 1972 SMOKING Hx and SMOKELESS TOB ACCO SCREENING 1973 HEPATITIS C SCREENING 1978 HIV ONE-TIME SCREENING (18-6 5 YEARS) 1978 HEPATITIS A VACCINES (1 of 2 - Risk 2-dose series) 10/08/1979 PNEUMOCOCCAL VACCINES (50+ y ears) (1 of 2 - PCV) 10/08/1979 PAP SMEAR 1981 SCREENING FOR DIABETES 10/08/1995 COLOGUARD 2005 COLONOSCOPY 2005 COLORECTAL CANCER SCREENING 2005 FIT TEST 2005 FOBT 2005 SIGMOIDOSCOPY 2005 VIRTUAL COLONOSCOPY 2005 RSV VACCINE (1 - Risk 50-74 years 1-dose series) 2010 ZOSTER VACCINES (1 of 2) 2010 Adult Td,Tdap Booster 05/22/2018 05/22/2008 INFLUENZA VACCINE (#1) 2024 COVID-19 VACCINE (1 - 2024-2 6 season) 2024 MAMMOGRAM 12/21/2025 12/22/2023 LIPID PANEL 07/28/2029 07/28/2024 HIB VACCINES Aged Out No longer eligi ble based on patient's age to complete this topic MENINGOCOCCAL VACCINES (ACWY) Aged Out No longer eligible based on patient's age to complete this topic MENINGOCOCCAL VACCINES (B) Aged Out N o longer eligible based on patient's age to complete this topic Medical Devices Not on file Insurance MEDICARE PART A & B Member Subscriber Plan / Payer (Ef fective 2004-Present) Name:Ava Ibanez Member ID:[id number] Relation to Subscriber:Self Name:Aav Ibanez Subscriber ID:[id number] Payer ID:[id number] Group ID:Not on file Type:Medicare Address: [facility] [employer] [facility] [address] [facility] [place] [address] [facility] & B [facility] PART A & B [place] MED[place] PART [place] & B HEALTH MEDICARE PART A & [place] & B Member Subscriber Plan / Payer (Ef fective 2004-Present) Name:Ava Ibanez Member ID:[id number] Relation to Subscriber:Self Name:Ava Ibanez Subscriber ID:[id number] Payer ID:[id number] Group ID:Not on file Type:Medicare Address: [facility] [phone] [facility] & B [place] MED[place] PART A & B [facility] MEDICARE PART A & B [place] & B [facility] & [place] A & B [facility] Care Teams Algology Teacher Relationship Specialty Start Date End Date Kyung Holley MD [address] [place] [id number] PCP - General Internal Medicine 08/19/24 Additional Source Comments The information contained in this document represents components of the legal health record. It is not the complete legal health record.[facility]
--- OUTSIDE RECORDS SUMMARY | 2024-12-30 13:17 | XMS_ITS | Encounter Summary ---
Author Organization [facility] [place] [address] Care Team Providers Care Podiatric Surgeon Name Role Phone Kyung Billy MD Primary Care Prov ider Encounter Details Date Type Department Care Team ([facility] st Contact Info) Description 12/02/2024 Telephone Neurosurgery [facility] [address] [facility] [address] [place] [address] Stephanie Elaine MA Social History Tobacco Use Types Packs/Day Years [...] care for your loved ones. For example, childbirth and infant care teacher or elderly care for an older adult? [...] 05/09/2024 11:06 PM Bobby Flores RN * Are you blind or do you [...] 05/09/2024 11:06 PM Bobby Flores RN * Because of a physical, mental, or emotional condition, do you have serious difficulty doing errandsalone such as visiting the doctor? Answer Date of Assessment Author No 05/09/2024 11:06 PM EDBobby Eric RN documented as of this encounter Mental Status * Because of a physical, mental, or emotional condition, do you have serious difficulty concentrating, remembering, or making decisions? (5 years old or older) Answer Entry Date Author No 05/09/2024 11:06 PM Bobby Flores RN documented in this encounter Progress Notes * Melissa Marcano - 12/05/2024 4:07 PM EDT Patient returned your call. * LINDSEY Barraza - 12/05/2024 3:58 PM EDT I called pt, no answer, left VM * Stephanie Elaine MA - 12/04/2024 11:44 AM EDT Pt returned call to Provider. Pt asked to please call back to [phone]. Thank you * LINDSEY Barraza - 12/03/2024 5:09 PM EDT Called pt, no answer, left VM. * Stephanie Elaine MA - 12/02/2024 3:13 PM EDT Pt LM on VM. Pt stated that she had seen Provider in past. She stated that she had fallen and has great pain. Asked that Provider please call her [phone]. Thank you. documented in this encounter Plan of Treatment Upcoming Encounters Date Type Department Care Team (Late st Contact Info) Description 12/31/2024 8:30 AM EST Appointment [facility] CT Scan [address] [place] [phone] 01/02/2025 11:00 AM EST Office Visit Pulmonology - [place] 175 [facility] [address] [place] [address] Brina Howe MD [address] [place] [address] 01/07/2025 10:30 AM EST Office Visit Thoracic Surgery - [place] [address] [facility] [address] [place] [address] Haley Cee NP [address] [place] [phone] 06/23/2025 11:30 AM EDT Office Visit Adult Medicine [facility] [address] [place], [place] [phone] Tamra Ray PA [address] [place] [address] documented as of this encounter Visit Diagnoses Not on filedocumented in this encounter Care Teams Podiatric Surgeon Relationship Specialty Start Date End Date Kyung Billy MD [address] [place] [address] PCP - General Internal Medicine 09/27/21 documented as of this encounter
--- OUTSIDE RECORDS SUMMARY | 2024-12-30 13:17 | XMS_ITS | Data Portability ---
Author Organization [place] [facility] X[facility] [place] Address [address] [place] [address] Care Team Providers Care Pan Shaker Name Role Phone JEANNE MUHAMMAD Primary Care Provider VENKAT MARTINEZ Primary Care Provider [phone] Assessment Encounter Date Assessment Date Assessment LastModified by Organization Details LastModified Time 03/31/2023 03/31/2023 HPI : Ava is coming in for 7-week follow-up from her left total hip replacement, as well as complaints of right hip pain. She is recovering appropriately regarding her left hip. Still some stiffness. She reports thigh stiffness bilaterally. She is walking without an assistive device. She is completing physical therapy. She is eager to get the right hip treated which also has severe osteoarthritis. T his patient is experiencing right hip pain for a period lasting greater than the last three months, which is severe (VAS score greater than or equal to 6 on a 0-10 scale) in intensity and the restriction of function (appropriate for a patient of this age) are intolerable. The pain substantially limits activities of daily living. In particular, walking tolerance and ability to stair climb is reduced. Conservative management such as non-steroidal anti-inflammatory medications available by prescription, physician directed therapy, ice and/or heat and activity modification have been minimally effective or deemed insufficient by the patient for a period lasting greater than 3-6 months in duration. Assistive devices and external support were not deemed by the patient to be helpful in improving their function. The patient is unable to tolerate further physical therapy at this time. Review of systems is negative for rapidly progressive neurological disorder, chest pain, shortness of breath, fevers, chills, or any signs of active or persistent local or systemic infection. Physical Exam : Patient is well nourished, well-developed, in no acute distress, with appropriate mood and affect. The patient is oriented to time, place, and person. Respirations are even and unlabored. Gait evaluation reveals a limp. There is no inguinal adenopathy. Examination of the left hip shows normal range of motion, strength, no tenderness, and well-healed bikini skin incision. The affected right limb is well-perfused, shows a grossly normal motor and sensory examination. Examination of the hip shows no skin lesions. Hip motion is reduced and causes pain. FADIR is positive and DAINA is positive. Stinchfield test is positive. Both hips are stable and muscle strength is normal. Pedal pulses are palpable. Imaging: Radiographs of the right hip from November 2022 demonstrate degenerative joint disease with joint space narrowing, osteophyte formation, and subchondral sclerosis. Assessment/Plan : Patient is recovering appropriately from her left total hip replacement. Continue hip conditioning program. Ppwz-yqh-jwsnjev medications as needed. The patient is an appropriate candidate for consideration of right total hip replacement. An extensive discussion was conducted of the natural history of the disease and the variety of surgical and non-surgical treatment options available to the patient. A risk/benefit analysis was discussed with the patient reviewing the advantages and disadvantages of surgical intervention at this time. A full explanation was given of the nature and the purpose of the procedure and anesthesia, its benefits, possible alternative methods of diagnosis or treatment, the risks involved, the possibility of complications, the foreseeable consequences of the procedure and the possible results of the non-treatment. No guarantee or assurance was made as to the results that may be obtained. Specifically, the risks were identified to include, but are not limited to the following: Infection, phlebitis, pulmonary embolism, , paralysis, dislocation, pain, stiffness, instability, limp, weakness, breakage, leg-length inequality, uncontrolled bleeding, nerve injury, blood vessel injury, pressure sores, anesthetic risks, delayed healing of wound and bone, and wear and loosening. Additional risks of robotic hip replacement were discussed (if used) including but not limited to pin site infection, draining, longer incision, longer OR time, and fracture near the pin sites. Further discussion was undertaken with the patient about the details of surgical preparation, treatment, and postoperative rehabilitation including medical clearance, autotransfusion, the hospital course, and the postoperative rehabilitation involved. As a part of routine preoperative counseling, if the patient is a smoker, the patient recognizes the increased risk of complications in patients who utilize tobacco products. The patient has also been counseled regarding the elevated risk of surgical complications in patients with an elevated BMI. The patient demonstrates understanding of the increased risk in such patients. The patient was encouraged to participate in physical activity and diet modification under the direction of their primary care physician. We will plan on proceeding with right total hip arthroplasty using the Mary Ann hip replacement system. However, it is possible during the preoperative planning process or due to intraoperative findings that a different implant system may be utilized in order to optimize the patient's outcome. We had a discussion regarding implant and bearing options. We had a detailed discussion of the advantages and limitations of the specific implant designs, materials and bearing surfaces. All questions were answered to the patient's satisfaction, and the patient was asked to call the office with any further concerns. All in all, I feel that this patient is a good candidate for surgical reconstruction. Plan for right total hip replacement at . Not available 03/31/2023 10:51:56 05/25/2023 05/25/2023 HPI : Patient is here for a 2 week follow-up from a right GIOVANNA. Patient denies fevers, chest pain and shortness of breath. Patient has been compliant with anticoagulant protocol. She complains of persistent right hip pain. There has been no worsening or substantial change in the characteristics of her pain. It is disruptive of sleep. She has exhausted her supply of Dilaudid and requests a refill. She has been doing therapy exercises at home and has plans to get started on outpatient PT soon She has some concomitant right knee pain. She is advised to schedule a follow-up visit in another month or 2 for dedicated evaluation of the right knee. Physical Exam : Patient is well nourished, well- developed, in no acute distress, with appropriate mood and affect. The patient demonstrates good hip motion and strength. The incision is clean and dry with no signs of infection. Negative calf tenderness, negative Kedar's sign. Her wound is healing nicely. Circumduction of the hip is comfortable internal rotation beyond 20 degrees is causing some discomfort. Distal checks are grossly intact. Assessment/Plan : The patient is doing well 2 weeks from total hip arthroplasty. Patient will continue and complete 28 day anticoagulation therapy and continue physical therapy. Return for follow-up in 1 month; sooner with any problems. This patient was seen and evaluated by Asya Minor MS, PALexis in indirect conjunction with [facility] provider Chalo Lacy MD. He agrees with history, physical examination, tests/diagnostic imaging, and treatment plan. Not available 05/25/2023 11:19:45 06/23/2023 06/23/2023 HPI : Patient is here for a 6 week follow-up from a right total hip replacement. She is recovering appropriately. She is having some pain in the groin and buttock area. This is slowly improving. She is using a cane. She is working with physical therapy. She was slow to recover on the left hip as well, but she does not remember this well. Her Fell out of her tooth and she is going to need a dental procedure. Physical Exam : Patient is well nourished, well- developed, in no acute distress, with appropriate mood and affect. The patient is AAOx3. The patient demonstrates good hip motion and strength. The incision is well healing. Assessment/Plan : The patient is functioning well 6 weeks from total hip arthroplasty. We expect continued improvements for her. This is a similar course as she had on the left side. We discussed most fibromyalgia patients have a slower course. Continue physical therapy as needed. I am sending a prescription for methocarbamol. I am sending her amoxicillin for her dental procedure. Return for follow-up in 2 months with x-rays at that time. [email or web address] Not available 06/23/2023 13:04:57 08/18/2023 08/18/2023 HPI : Patient is here for 3 month(s) follow-up for right total hip replacement. P kaylaient reports good pain relief in the hip and satisfactory yarsanism of function in terms of activities of daily living. Their condition is improved relative to their pre-operative condition. Overall, she is pleased with the results of her right hip replacement surgery. She denies pain in the groin. She does report that a couple of weeks ago she had a fall backwards onto some sporting equipment and furniture causing some discomfort at the right buttock. It has begun to show signs of improvement but is still sore. She attended and completed her full course of physical therapy and was discharged to home exercise plan. She reports that her recovery from the right hip replacement is been slightly slower than her recovery from the left. She is much improved overall relative to her preoperative condition. Physical Exam : Patient is well nourished, well-developed, in no acute distress, with appropriate mood and affect. The patient is oriented to time, place, and person. There is no inguinal adenopathy. The operative limb is well-perfused, with well healed skin incision. The patient demonstrates good hip motion, stability, and strength. There is no pain with ROM Muscle strength is normal. Distal NVMS checks are intact. X-Ray: 3 view x-ray study of right hip obtained during today's office encounter does not show any signs of implant related issues including loosening, malposition, instability, periprosthetic fracture, periosteal reaction or infection. Assessment/Plan : This patient is functioning well after total hip arthroplasty. Continue to work on hip conditioning exercises. Xnpf-nan-havbxeu medications as needed. She is provided a physical therapy order. She will attend PT in the event that her contusion symptoms do not show continued signs of improvement in the coming couple of weeks. If she has to attend therapy but does not improve, she understands the need to contact this office for recheck. The patient understands that ultimate failure may occur due to mechanical wear, loosening or breakage. Follow-up at one year post-op is recommended to assess for the possibility of failure. Follow up sooner with any problems. At least 25 minutes were spent reviewing previous charting and radiographs, obtaining history and physical exam, and reviewing treatment plan. This patient was seen and evaluated by Asya Minor MS, PA-C in indirect conjunction with [facility] Chalo Lacy MD. He agrees with history, physical examination, tests/diagnostic imaging, and treatment plan. Not available 08/18/2023 14:06:11 07/04/2024 07/04/2024 HPI : Patient is here for follow-up regarding her staged bilateral total hip replacements. She had a left hip replacement at [facility] in 2022 and then a right hip replacement in April 2023. Her main issue is with the right side. The right side was slower to recover than the left. Her current symptoms are buttock pain radiating down to the foot. The pain is with certain positions. She does have a history of low back issues, but she was not clear on previous treatments. She does have a history of fibromyalgia. Physical Exam : Patient is well nourished, well-developed, in no acute distress, with appropriate mood and affect. The patient is oriented to time, place, and person. Respirations are even and unlabored. There is no inguinal adenopathy. Examination of the left hip shows well-healed skin incision. Good range of motion and strength of the left hip. The right limb is well-perfused, with well healed skin incision. The patient demonstrates good hip motion, stability, and strength. There is no pain with ROM Muscle strength is normal. Pedal pulses are palpable. Assessment/Plan : Patient is over 1 year from staged bilateral total hip replacements. She is having persistent pain on the right side radiating down to the foot. Exam, imaging, and history do not show any signs of implant related issues including loosening, malposition, instability, periprosthetic fracture, or infection. Her symptoms seem more correlated with potential low back etiology. Potential radiculopathy. I would like her evaluated by a food service specialist. Exam and imaging are not consistent with hip related etiology. We can continue routine follow-up for her hips. She can follow-up next year with repeat x-ray of the bilateral hips at that time. Not available 07/04/2024 13:13:38 Plan of Treatment Reminders Order Date Submit Date Provider Last Modified By Organization Details Last Modified Time Details Appointments None recorded. Lab None recorded. Referral None recorded. Procedures None recorded. Surgeries total hip arthroplast y (SURG) 2023 024 [facility], [address] [place] [address], [id number], 4 11:22:06 Imaging XR, hip, unilateral, 2 or 3 view 2024 025 [email or web address], [address], [place], [address], 5 13:12:19 XR, hip, unilateral, 2 or 3 view 2024 025 [email or web address] 2 [facility], [address], [place], [address], 5 13:12:19 XR, hip, unilateral, 2 or 3 view 2023 024 [email or web address] 2 [facility], [address], [place], [address], 4 14:04:22 Medication Orders methocarbam ol 750 mg tablet 2023 024 [facility], [address] [place] [address], [address], 4 13:03:08 amoxicillin 500 mg capsule 2023 024 [facility], [address] [place] [address], [address], 4 14:04:46 Dilaudid 2 mg tablet 2023 024 [facility], [address] [place] [address], [address], 4 12:58:10 Patient TargetsNo targets recorded. Patient Instructions Encounter Date Encounter Id Patient Instructions Last Modified By Organization Details Last Modified Time 05/25/2023 [id number] physical therapy* Not availa ble 06/01/2023 10:26:23 08/18/2023 [id number] physical therapy * - Diagnosis: Contusion right hip superimposed on total joint arthroplasty. Evaluate and treat as indicated to reduce pain and to improve strength, mobility, stability, range of motion, and function. Please teach a home exercise plan and incorporate PT into patient's exercise routine. 2-3 sessions weekly for 6-8 weeks. Not available 08/25/2023 10:39:34 07/04/2024 [id number] AP pelvis, AP an d lateral radiographs of the right hip taken today demonstrate a right total hip replacement with components in appropriate position without any signs of hardware related complication. AP pelvis, AP and lateral radiographs of the left hip taken today demonstrate a left total hip replacement with components in appropriate position without any signs of hardware related complication. Not available 07/04/2024 13:13:45 Reason for Referral None Reported. Problems Name Problem SNOMED Code Status Onset Date Resolution Date Notes Provider Name and Address Organization Details Recorded Time Malignant melanoma of lower limb 045029880 Active 2018 Malignant melanoma of right lower extremity including hip Not Available [facility] 5 23:56:13 Osteoarth ritis of left hip joint 35174322649 9108 Active 2022 Chalo Lacy MD [address], [place], [address] , [place] [facility], P 3 13:52:51 Arthritis of hip 78045659 Active 2022 Chalo Lacy MD [address], [place], [address] , [place] [facility], P 3 13:53:06 History of total replaceme nt of left hip joint 49971848650 06525 Active 2023 ASYA MINOR PA-C [address], [place], [address] , [place] [facility], P 4 10:33:37 Osteoarth ritis of right hip joint 13786014644 9107 Active 2023 Chalo Lacy MD [address], [place], [address] , [place] [facility], P 4 10:41:42 Surgical follow-up 742988621 Active 2023 Chalo Lacy MD [address], [place], [address] , [place] [facility], P 4 13:02:38 History of repair of hip joint 082160325 Active 2023 ASYA MINOR PA-C [address], [place], [address] , [place] [facility], P 4 14:02:36 Problem Notes None recorded. Procedures Surgical History Date Name Laterality Status Provider Name and Address Organization Details Recorded Time 05/11/19 24 TOTAL HIP ARTHROPLASTY (SURG) completed Saba Amos [place] [facility], P 05/15/2023 11:22:06 repair of ankle completed [facility] [place] [facility], P 12/16/2022 13:16:20 complete repair of rotator cuff completed [facility] [place] [facility], P 12/16/2022 13:16:55 Spine Surgery completed [facility] [place] [facility], P 12/16/2022 13:17:15 Hysterectomy completed [facility], P 12/16/2022 13:17:26 procedure on gallbladder completed Corinna Rosario [place] [facility], P 01/11/2023 14:21:14 TOTAL HIP ARTHROPLASTY (SURG) completed Catarina Johan [facility], P 02/15/2023 16:27:08 Imaging Results None recorded. Procedure Notes None recorded. Medical Equipment None Reported. Allergies Allergen ID Allergen Name Allergen Category Reaction Reaction Severity Criticality Documentation Date Start Date Code Code System Note Provider Name and Address Organization Details Recorded Time 89603 Chantix medicatio n Not available Not available Not available 01/11/2023 11701 0 RxNorm Corinna Rosario [facility], [place] [facility], P 3 14:19:43 29221 omeprazol e medicatio n Not available Not available Not available 11/19/20242017 7646 RxNorm Not Available [facility] 5 01:21:28 32467 clonidine medicatio n Not available Not available Not available 11/19/20242017 2599 RxNorm Not Available [facility] 5 01:21:28 89684 varenicli ne Not available Not available Not available Not available 11/19/20242017 62469 2 RxNorm Not Available [facility] 5 01:21:28 17551 pregabali n medicatio n Not available Not available Not available 11/19/20242017 05929 2 RxNorm Not Available [facility] 5 01:21:29 19121 diphenhyd ramine hydrochlo ride medicatio n Not available Not available Not available 11/19/20242017 1362 RxNorm Not Available [facility] 5 01:21:29 42862 gabapenti n medicatio n Not available Not available Not available 11/19/20242017 99380 RxNorm Not Available [facility] 5 01:21:29 9308 Substance with sulfonami de structure and antibacte rial mechanism of action (substanc e) medicatio n Not available Not available Not available 12/16/2022 16250 8003 SNOMED Aubrie Ficarra null, [place] [facility], [facility] 3 13:19:24 9309 codeine medicatio n Not available Not available Not available 12/16/2022 2670 RxNorm Aubrie Ficarra null, [place] [facility], P 3 13:19:41 9310 Lyrica medicatio n Not available Not available Not available 12/16/2022 93049 1 RxNorm Aubrie Ficarra null, [place] [facility], P 3 13:22:29 9311 Latuda medicatio n Not available Not available Not available 12/16/2022 55524 32 RxNorm Aubrie Ficarra null, [place] [facility], [facility] 3 13:22:41 9312 Benadryl medicatio n Not available Not available Not available 12/16/2022 54459 7 RxNorm Aubrie Ficarra null, [place] [facility], [facility] 3 13:22:58 Medications Name Sig Start Date Stop Date Status Note LastModified by Organization Details LastModified Time amoxicillin 500 mg capsule Take 4 tablets one hour prior to dental procedure 08/17 completed Not Available Not Available Not Available latanoprost 0.005 % eye drops INSTILL 1 DROP INTO EACH EYE AT BEDTIME DIRECTED active Not Available Not Available No t Available levothyroxi ne 137 mcg tablet TAKE 1 TABLET BY MOUTH ONCE DAILY active Not Available Not Available No t Available Dilaudid 2 mg tablet Take 1 tablet every 4-6 hours by oral route as needed. 06/22 completed Not Available Not Available Not Available ibuprofen 800 mg tablet Take 1 tablet (800 mg total) by mouth 2 (two) times a day. active Not Available Not Available No t Available tizanidine 4 mg tablet Take 1 tablet (4 mg total) by mouth every 6 (six) hours as needed. active Not Available Not Available No t Available meloxicam 15 mg tablet 06/22 completed Not Available Not Available Not Available ondansetron HCl 4 mg tablet active Not Available Not Available Not Available aspirin 81 mg tablet,kaelyn yed release 08/17 completed Not Available Not Available Not Available tramadol 50 mg tablet Take 1 tablet every 8 hours by oral route as needed. 06/22 completed Not Available Not Available Not Available acetaminoph en 500 mg tablet active Not Available Not Available Not Available ondansetron 8 mg disintegrat ing tablet active Not Available Not Available N ot Available cefadroxil 500 mg capsule 08/17 completed Not Available Not Available Not Available levothyroxi ne 100 mcg tablet TAKE 1 TABLET BY MOUTH ONCE DAILY active Not Available Not Available No t Available oxycodone-a cetaminophe n 5 mg-325 mg tablet TAKE 1 TABLET BY MOUTH EVERY 6 HOURS NEEDED FOR PAIN 05/24 completed Not Available Not Available Not Available ofloxacin 0.3 % ear drops active Not Available Not Available Not Available methocarbam ol 750 mg tablet Take 1 tablet twice a day by oral route as needed. 2023 active Not Available Not Available Not Avai lable acitretin 25 mg capsule Take 1 capsule (25 mg total) by mouth every morning before breakfast . active Not Available Not Available No t Available pantoprazol e 40 mg tablet,kaelyn yed release TAKE 1 TABLET BY MOUTH TWICE DAILY ON AN EMPTY STOMACH. WAIT 30 MINUTES AND THEN EAT TO ACTIVATE THE MEDICATIO N. TAKE BEFORE BREAKFAST AND SUPPER. active Not Available Not Available No t Available levothyroxi ne 150 mcg tablet active Not Available Not Available Not Available betamethaso ne dipropionat e 0.05 % topical cream APPLY CREAM TOPICALLY TO AFFECTED AREA TWICE DAILY FOR 2 WEEKS 01/11 completed Not Available Not Available Not Available mometasone 50 mcg/actuati on nasal spray spray or apply 2 sprays inside Nose daily. active Not Available Not Available No t Available omeprazole 20 mg capsule,del ayed release TAKE 1 CAPSULE BY MOUTH ONCE DAILY ON AN EMPTY STOMACH, WAIT 30 MINUTES AND THEN EAT TO ACTIVATE MEDICATIO N. active Not Available Not Available No t Available bisacodyl 5 mg tablet,kaelyn yed release Take 1 tablet (5 mg total) by mouth daily as needed for constipat ion. active Not Available Not Available No t Available furosemide 20 mg tablet TAKE 1 TABLET BY MOUTH ONCE DAILY NEEDED FOR UNCONTROL LED ANKLE SWELLING active Not Available Not Available No t Available lorazepam 1 mg tablet Take 1 tablet (1 mg total) by mouth 2 (two) times a day. active Not Available Not Available No t Available timolol maleate 0.5 % eye drops 1 drop 2 (two) times a day. active Not Available Not Available No t Available levothyroxi ne 112 mcg tablet Take 1 tablet (112 mcg total) by mouth every morning on an empty stomach. active Not Available Not Available No t Available Ventolin HFA 90 mcg/actuati on aerosol inhaler INHALE 2 PUFFS BY MOUTH EVERY 6 HOURS NEEDED FOR COUGH OR WHEEZE active Not Available Not Available No t Available oxycodone 5 mg tablet TAKE 1 TABLET BY MOUTH EVERY 4 TO 6 HOURS 05/24 completed Not Available Not Available Not Available Stool Softener-La xative 8.6 mg-50 mg tablet TAKE 1 TABLET BY MOUTH TWICE DAILY NEEDED FOR CONSTIPAT ION active Not Available Not Available No t Available duloxetine 20 mg capsule,del ayed release TAKE 1 CAPSULE BY MOUTH ONCE DAILY 01/11 completed Not Available Not Available Not Available duloxetine 30 mg capsule,del ayed release Take 1 capsule (30 mg total) by mouth daily. active Not Available Not Available No t Available zolpidem ER 12.5 mg tablet,exte nded release,mul tiphase Take 1 tablet (12.5 mg total) by mouth every night at bedtime as needed for sleep. active Not Available Not Available No t Available tizanidine 06/22 completed Not Available Not Available Not Available Pepcid active Not Available Not Availa ble Not Available Seroquel active Not Available Not Avai lable Not Available Cymbalta active Not Available Not Avai lable Not Available quetiapine ER 300 mg tablet,exte nded release 24 hr TAKE 1 TABLET BY MOUTH ONCE DAILY DIRECTED 3 HOURS BEFORE GOING TO BED active Not Available Not Available No t Available quetiapine ER 200 mg tablet,exte nded release 24 hr TAKE 1 TABLET BY MOUTH 3 HOURS BEFORE BEDTIME DIRECTED active Not Available Not Available No t Available quetiapine ER 50 mg tablet,exte nded release 24 hr TAKE 1 TABLET BY MOUTH EVERY NIGHT AT BEDTIME. TAKE WITH THE 200 MG DOSE FOR A TOTAL DAILY DOSE OF 250 MG AT BEDTIME. active Not Available Not Available No t Available Stelara 90 mg/mL subcutaneou s syringe 05/24 completed Not Available Not Available Not Available Stelara 45 mg/0.5 mL subcutaneou s syringe active Not Available Not Available No t Available Anoro Ellipta 62.5 mcg-25 mcg/actuati on powder for inhalation INHALE 1 PUFF BY MOUTH ONCE DAILY active Not Available Not Available No t Available Vitals Date Recorded Body height Body mass index (BMI) Body weight Provider Name and Address Organization Details Last Updated DateTime 05/25/2023 170.18 cm 30.5 kg/m2 61907.[address] [place] [facility] [place] 05/25/2023 11:08:24 Date Recorded Body height Body mass index (BMI) Body weight Provider Name and Address Organization Details Last Updated DateTime 06/23/2023 170.18 cm 30.5 kg/m2 [address]26.[address] - [facility] [place] 06/23/2023 12:52:00 Date Recorded Body height Body mass index (BMI) Body weight Provider Name and Address Organization Details Last Updated DateTime 07/04/2024 170.18 cm 33.7 kg/m2 67301.[address] - [facility] [place] 07/04/2024 12:55:42 Social History None recorded. Functional Status Question Answer Note LastModified by Organizat ion Details LastModified Time Do you use any illicit or recreational drugs? No Information not available 12/16/2022 What is your level of alcohol consumption? Occasional Information not available 12/16/2022 Mental Status None recorded. Family History Nothing Reported. Medical History Condition Response Hyperthyroidism Y COPD Y Vascular Disease Y Cancer Y Anemia Y Reflux/GERD Y Gynecological HistoryNo gynecological history recorded. Obstetrics History GPAL:G 0 P 0 0 0 0 Past Encounters Encounter ID Performer Location Encounter Start Date Encounter Closed Date Diagnosis/Indication Diagnosis SNOMED-CT Code Diagnosis ICD10 Code Diagnosis IMO Codes Diagnosis Note [id number] [facility] [address] [address] 12/16/2022 12:45:32 12/16/2022 13:55:10 Pain of right hip joint 1620016943 46738 M25.551 Pain of le ft hip joint 3572755714 60417 M25.552 Osteoarthr itis of left hip joint 5280099523 93721 M16.12 Arthritis of hip 8840840 6 M13.[id number] [facility] [address] [address] 03/02/2023 10:11:48 03/02/2023 10:36:41 History of total replacement of left hip joint 3058936725 728691 Z96.642 [id number] [facility] [address] [address] 03/31/2023 09:52:11 03/31/2023 10:59:57 Osteoarthritis of right hip joint 6975229892 28033 M16.11 Arthritis of hip 6021626 6 M13.859 History of total replacement of left hip joint 7904681738 705479 Z96.[id number] [facility] [address] [address] 05/25/2023 10:33:20 05/25/2023 11:21:14 History of total replacement of left hip joint 9318371686 230710 Z96.642 [id number] MD GERA Solis [place] [address] [facility] [address] [place] [address] 06/23/2023 12:45:50 06/23/2023 13:08:58 Surgical follow-up 587602525 Z47.1 Z96.641 Additional diagnosis detail: Aftercare following right hip joint replacemen t surgery [id number] [facility] 299 [facility] [address] [place] [address] 08/18/2023 13:39:26 08/18/2023 14:04:22 History of repair of hip joint 624955531 Z96.641 Additional diagnosis detail: History of right hip replacemen t [id number] MD GERA Solis [facility] 299 [facility] [address] [place] [address] 07/04/2024 12:45:26 07/04/2024 13:12:19 History of total replacement of right hip joint 8295464194 60533 Z96.641 [id number] History of total replacement of left hip joint 5554704395 700372 Z96.642 Health Concerns Section Related Observation LastModified by Organization Detai ls LastModified Time None Recorded Concern Status LastModified by Organization Details LastModified Time None Recorded Advance Directives Directive None Recorded Payers Insurance Date Sequence Insurance Name Policy Number Policy Sandoval Covered Member ID Sandoval Member ID Guarantor Name 07/04/2024 2 [place] [facility] Ava Ibanez [id number] Ava Ibanez 07/04/2024 1 [place] [employer] Ava Ibanez [id number] Ava Ibanez OBGyn Episode No OBEpisode recorded.
--- OUTSIDE RECORDS SUMMARY | 2024-12-30 13:17 | XMS_ITS | Data Portability ---
Author Organization [place] [facility], Allergy Address [address] [address] Care Team Providers Care Helpdesk Technician Name Role Phone JEANNE OCHOA Primary Care Provider [phone] Assessment Encounter Date Assessment Date Assessment LastModified by Organization Details LastModified Time 10/19/2023 10/19/2023 63 year old female with external auditory canal exostoses bilaterally presented for follow up of ear infection. Cerumen impaction removed bilaterally. Culture of the left ear was obtained today and medical therapy will be adjusted pending the results. Recommend Clotrimazole drops bilaterally for two weeks and dry ear precautions. She will follow up in 1 month for reevaluation. We will plan for audiometric testing upon resolution of the infection. May consider referral to Dr. Cyr to discuss surgical removal of exostosis given chronic infection. Not available 10/19/2023 10:32:21 Plan of Treatment Reminders Order Date Submit Date Provider Last Modified By Organization Details Last Modified Time Details Appointments None recorded. Lab fungus, culture, unspecified specimen 2023 024 [email or web address] [facility] (Centralized Electronic Ordering - All Locations), Patient Can Go To The Location Of Their Choice, [id number] 4 15:31:52 culture, bacterial 2023 024 [email or web address] [facility] (Centralized Electronic Ordering - All Locations), Patient Can Go To The Location Of Their Choice, [address] 4 15:31:52 Referral None recorded. Procedures None recorded. Surgeries None recorded. Imaging None recorded. Medication Orders clotrimazol e 1 % topical solution 2023 024 [facility], [address] [facility], [place], [address], 10:02:49 Patient TargetsNo targets recorded. Patient InstructionsNo instructions recorded. Reason for Referral None Reported. Results Created Date Observation Date Name Description Value Unit Range Abnormal Flag Note LastModifiedBy Organization Detail LastModifiedTime 10/19/19 24 10/23/2023 ANAER OBIC AND AEROB IC CULTU RE anaerobic culture Final report Not Available [facility] ([facility]) [address] [place], [address], 11/17/2023 12:09:50 10/19/1910/23/2023 ANAER OBIC AND AEROB IC CULTU RE result 1 COMMEN T No anaer obic growt h in 72 hours . Not Available [facility] ([facility]) [address] [facility], [place], [address], 11/17/2023 12:09:50 10/19/19 24 10/23/2023 ANAER OBIC AND AEROB IC CULTU RE aerobic culture Final report abnormal Not Available [facility] ([facility]) [address] [place], [address], 11/17/2023 12:09:50 10/19/19 24 10/23/2023 ANAER OBIC AND AEROB IC CULTU RE result 1 Kocuri a varian s abnormal Recov ered from broth only. Susce ptibi lity not yarely lly perfo rmed on this organ ism. Not Available [facility] ([facility]) [address] [place], [address], 11/17/2023 12:09:50 10/19/19 24 10/20/2023 FUNGU S CULTU RE WITH STAIN fungus stain Final report Not Available [facility] ([facility]) [address] [place], [address], 11/17/2023 12:09:51 08/22/10/20/2023 FUNGU S CULTU RE WITH STAIN result 1 COMMEN T COLEEN/C alcof luor prepa ratio n: no fungu s obser mykel. Not Available [facility] ([facility]) [address] [facility], [place], [address], 11/17/2023 12:09:51 10/19/19 24 11/17/2023 FUNGU S CULTU RE WITH STAIN fungus (mycology) culture Final report Not Available [facility] ([facility]) [address] [facility], [place], [address], 11/17/2023 12:09:51 10/19/1911/17/2023 FUNGU S CULTU RE WITH STAIN result 1 COMMEN T No yeast or mold isola paty after 4 weeks . Not Available [facility] ([facility]) [address] [facility], [place], [address], 11/17/2023 12:09:51 Result Notes None recorded. Problems Name Problem SNOMED Code Status Onset Date Resolution Date Notes Provider Name and Address Organization Details Recorded Time Bilateral exostosis of external ear canals 98723049045 83089 Active 2023 Exostosis of external canal, bilateral ; Note: Date Diagnosed : 07/06/2023 2:36 PM (H61.813) Not Available [facility] 4 02:36:13 Infective otitis externa of bilateral ears 07787278484 86994 Active 2023 Other infective otitis externa, bilateral ; Note: Date Diagnosed : 07/06/2023 2:36 PM (H60.393) Not Available [facility] 4 02:36:17 Bilateral diffuse otitis externa 36582995911 38198 Active 2023 VANESA LEOS PA-C [address] [facility],[place] [address], [place], [address] , [facility] - [facility] 4 10:02:02 Otorrhea 11686447 Active 2023 VANESA LEOS PA-C [address] [facility],[place] [address], [place], [address] , [facility] 4 10:02:11 Problem Notes None recorded. Procedures Surgical History Date Name Laterality Status Provider Name and Address Organization Details Recorded Time 4 Cerumen removal without microscope bilat completed DOLORES TORREZ PA-C [address] [facility] [address], [place], [address], [facility] - [facility] 10/19/2023 10:14:36 Imaging Results None recorded. Procedure Notes None recorded. Medical Equipment None Reported. Medications Name Sig Start Date Stop Date Status Note LastModified by Organization Details LastModified Time latanopros t 0.005 % eye drops INSTILL 1 DROP INTO EACH EYE AT BEDTIME DIRECTED active Not Available Not Available No t Available levothyrox ine 137 mcg tablet TAKE 1 TABLET BY MOUTH ONCE DAILY active Not Available Not Available No t Available meloxicam 15 mg tablet active Not Available Not Available Not Available aspirin 81 mg tablet,del ayed release active Medicatio n ID: [id number] Br and Name: aspirin S end Method: E-Prescri bed Subs Allowed: subs OK Medica tionGener icName: aspirin Not Available Not Available Not Available acetaminop hen 500 mg tablet active Medicatio n ID: [id number] Br and Name: acetamino phen Send Method: E-Prescri bed Subs Allowed: subs OK Medica tionGener icName: acetamino phen Not Available Not Available Not Available ondansetro n 8 mg disintegra ting tablet active Not Available Not Available Not Available cefadroxil 500 mg capsule active Not Available Not Available Not Available ofloxacin 0.3 % ear drops Apply 5 drops into both ears twice a day x 14 days active Not Available Not Available No t Available methocarba mol 750 mg tablet active Medicatio n ID: [id number] Br and Name: methocarb spencer Send Method: E-Prescri bed Subs Allowed: subs OK Medica tionGener icName: methocarb spencer Not Available Not Available Not Available clotrimazo le 1 % topical solution Apply 5 drops to both ears BID x 14 days 2023 active Not Available Not Available Not Avai lable omeprazole 20 mg capsule,de layed release TAKE 1 CAPSULE BY MOUTH ONCE DAILY ON AN EMPTY STOMACH WAIT 30 MINUTES AND THEN EAT TO ACTIVATE THE MEDICATIO N active Not Available Not Available No t Available bisacodyl 5 mg tablet,del ayed release TAKE 2 TABLETS BY MOUTH ONCE DAILY NEEDED FOR CONSTIPAT ION active Not Available Not Available No t Available furosemide 20 mg tablet active Medicatio n ID: [id number] Br and Name: furosemid e Send Method: E-Prescri bed Subs Allowed: subs OK Specia l Instructi on: TAKE 1 TABLET BY MOUTH ONCE DAILY NEEDED FOR UNCONTROL LED ANKLE SWELLING Medicatio nGenericN isabelle: furosemid e Not Available Not Available Not Available lorazepam 1 mg tablet active Medicatio n ID: [id number] Br and Name: lorazepam Send Method: E-Prescri bed Subs Allowed: subs OK Specia l Instructi on: TAKE 1 TABLET BY MOUTH TWICE DAILY NEEDED Me dicationG enericNam e: lorazepam Not Available Not Available Not Available timolol maleate 0.5 % eye drops INSTILL 1 DROP INTO EACH EYE IN THE MORNING DIRECTED active Not Available Not Available No t Available Ventolin HFA 90 mcg/actuat ion aerosol inhaler INHALE 2 PUFFS BY MOUTH EVERY 6 HOURS NEEDED FOR COUGH OR WHEEZE active Not Available Not Available No t Available oxycodone 5 mg tablet TAKE 1 TABLET BY MOUTH EVERY 4 TO 6 HOURS active Not Available Not Available No t Available Stool Softener-L axative 8.6 mg-50 mg tablet active Not Available Not Available No t Available duloxetine 30 mg capsule,de layed release TAKE 1 CAPSULE BY MOUTH TWICE DAILY active Not Available Not Available No t Available zolpidem ER 12.5 mg tablet,ext ended release,mu ltiphase TAKE 1 TABLET BY MOUTH AT BEDTIME NEEDED active Not Available Not Available No t Available quetiapine ER 200 mg tablet,ext ended release 24 hr TAKE 1 TABLET BY MOUTH DIRECTED 3 HOURS BEFORE GOING TO BED. active Not Available Not Available No t Available Flac Otic (ear) Oil 0.01 % drops 2023 active Medicatio n ID: [id number] Du ration Value: 14 Brand Name: Flac Otic Oil Send Method: E-Prescri bed Subs Allowed: subs OK Specia l Instructi on: 2 drops of each type of drop to both ears twice daily x 14 days Medi cationGen ericName: Flac Otic Oil Not Available Not Available Not Available Vitals Date Recorded Body height Body mass index (BMI) Body weight Provider Name and Address Organization Details Last Updated DateTime 10/19/2023 172.72 cm 34.2 kg/m2 338461.28 g Catarina Jain [place] - [facility] 10/19/2023 09:31:27 Social History None recorded. Functional Status None recorded. Mental Status None recorded. Family History Nothing Reported. Medical History No medical history recorded. Gynecological HistoryNo gynecological history recorded. Obstetrics History GPAL:G 0 P 0 0 0 0 Past Encounters Encounter ID Performer Location Encounter Start Date Encounter Closed Date Diagnosis/Indication Diagnosis SNOMED-CT Code Diagnosis ICD10 Code Diagnosis IMO Codes Diagnosis Note [id number] VANESA LEOS PA-C [facility] [address] [address] 10/19/2023 09:10:22 10/19/2023 09:55:48 Bilateral diffuse otitis externa [id number] 245434 H60.313 Bilateral exostosis of external ear canals 2068717745 751985 H61.813 Health Concerns Section Related Observation LastModified by Organization Detai ls LastModified Time None Recorded Concern Status LastModified by Organization Details LastModified Time None Recorded Advance Directives Directive None Recorded Payers Insurance Date Sequence Insurance Name Policy Number Policy Sandoval Covered Member ID Sandoval Member ID Guarantor Name 11/12/2023 2 [place] [facility] Ava Maciase [id number] Ava Ibanez 11/12/2023 1 [place] [employer] Ava Jackson Shamar [id number] Ava Ibanez Notes Date Note Type Note Provider Name and Address Organization Details Recorded Time 10/19/2023 text/html ROS as noted in the HPI 63 year old female with external auditory canal exostoses bilaterally presents for follow up of ear infection. She was treated with ofloxacin and fluocinolone drops back in June. She continues to have bilateral itching, pain, and sensation of bugs crawling in the ears. Was recently evaluated for jaw pain and CA was ruled out at [facility] last week. She denies ear drainage, tinnitus, or dizziness. Reports needing to increase TV volume to hear. LISA NOLASCO MD [address] [place] [address], [place], [address], [facility] - [facility] 10/19/2023 16:59:55 OBGyn Episode No OBEpisode recorded.
--- OUTSIDE RECORDS SUMMARY | 2024-12-30 13:17 | XMS_ITS | Encounter Summary ---
Author Organization [facility] Address [address] [place] [address] Care Team Providers Care Convention Services Director Name Role Phone Kyung Billy MD Primary Care Prov ider Encounter Details Date Type Department Care Team (Late st Contact Info) Description 12/22/2024 Results Follow-Up Adult Medicine [address] [phone] Kyung Billy MD [address] [place] [address] Social History Tobacco Use Types Packs/Day Years [...] care for your loved ones. For example, rn maternal child or elderly care for an older adult? [...] 05/09/2024 11:06 PM Bobby Flores RN documented as of this encounter Mental Status * Because of a physical, mental, or emotional condition, do you have serious difficulty concentrating, remembering, or making decisions? (5 years old or older) Answer Entry Date Author No 05/09/2024 11:06 PM Bobby Flores RN documented in this encounter Plan of Treatment Upcoming Encounters Date Type Department Care Team (Late st Contact Info) Description 12/31/2024 8:30 AM EST Appointment [facility] Scan [address] [place] [address] 01/02/2025 11:00 AM EST Office Visit Pulmonology - [place] [address] [facility] [address] [place] [phone] Brina Howe MD [address] [place] [phone] 01/07/2025 10:30 AM EST Office Visit Thoracic Surgery - [place] [address] [facility] [address] [place] [phone] Haley Cee NP [address] [place] [phone] 06/23/2025 11:30 AM EDT Office Visit Adult Medicine [address] [phone] Tamra Ray PA [address] [place], [place] documented as of this encounter Visit Diagnoses Not on filedocumented in this encounter Additional Health Concerns Assessment Noted Time PHQ-9 Depression Total Score: 19 025 12:54 PM EDT documented as of this encounter Care Teams Convention Services Director Relationship Specialty Start Date End Date Kyung Billy MD [address] [place], [place] PCP - General Internal Medicine 09/27/21 documented as of this encounter
--- OUTSIDE RECORDS SUMMARY | 2024-12-30 13:17 | XMS_ITS ---
Author Name [facility] Organization Unknown History of Medication Use Medication Directions Dispensed Refills Start Date End Date Stat amoxicillin 500 mg capsule Take 4 tablets one hour prior to dental procedure 06/23/2023 4 completed methocarbamol 750 mg tablet Take 1 tablet twice a day by oral route as needed. 06/23/2023 active Dilaudid 2 mg tablet Take 1 tablet every 4-6 hours by oral route as needed. 05/25/2023 4 active tramadol 50 mg tablet Take 1 tablet every 8 hours by oral route as needed. 03/02/2023 4 active aspirin 81 mg tablet,delayed release 4 completed cefadroxil 500 mg capsule 4 completed meloxicam 15 mg tablet 4 completed tizanidine 4 completed oxycodone 5 mg tablet TAKE 1 TABLET BY MOUTH EVERY 4 TO 6 HOURS 4 active oxycodone-acetaminop hen 5 mg-325 mg tablet TAKE 1 TABLET BY MOUTH EVERY 6 HOURS NEEDED FOR PAIN 4 completed Stelara 90 mg/mL subcutaneous syringe 02 4 active betamethasone dipropionate 0.05 % topical cream APPLY CREAM TOPICALLY TO AFFECTED AREA TWICE DAILY FOR 2 WEEKS 3 completed duloxetine 20 mg capsule,delayed release TAKE 1 CAPSULE BY MOUTH ONCE DAILY 3 completed hydromorphone 2 mg tablet TAKE 1 TABLET BY MOUTH AT BEDTIME FOR 7 DAYS 3 completed ibuprofen 800 mg tablet TAKE 1 TABLET BY MOUTH EVERY 8 HOURS NEEDED FOR PAIN 3 completed Dilaudid 2 mg tablet active acetaminophen 500 mg tablet active albuterol sulfate HFA 90 mcg/actuation aerosol inhaler INHALE 2 PUFFS BY MOUTH EVERY 6 HOURS NEEDED FOR COUGH OR WHEEZE active Anoro Ellipta 62.5 mcg-25 mcg/actuation powder for inhalation INHALE 1 PUFF BY MOUTH ONCE DAILY active bisacodyl 5 mg tablet,delayed release TAKE 2 TABLETS BY MOUTH ONCE DAILY NEEDED FOR CONSTIPATION active duloxetine 30 mg capsule,delayed release TAKE 1 CAPSULE BY MOUTH TWICE DAILY active furosemide 20 mg tablet TAKE 1 TABLET BY MOUTH ONCE DAILY NEEDED FOR UNCONTROLLED ANKLE SWELLING active latanoprost 0.005 % eye drops INSTILL 1 DROP INTO EACH EYE AT BEDTIME DIRECTED active levothyroxine 100 mcg tablet TAKE 1 TABLET BY MOUTH ONCE DAILY active levothyroxine 137 mcg tablet TAKE 1 TABLET BY MOUTH ONCE DAILY active levothyroxine 150 mcg tablet active lorazepam 1 mg tablet TAKE 1 TABLET BY MOUTH TWICE DAILY NEEDED active ofloxacin 0.3 % ear drops active omeprazole 20 mg capsule,delayed release TAKE 1 CAPSULE BY MOUTH ONCE DAILY ON AN EMPTY STOMACH, WAIT 30 MINUTES AND THEN EAT TO ACTIVATE MEDICATION. active ondansetron 8 mg disintegrating tablet active ondansetron HCl 4 mg tablet active pantoprazole 40 mg tablet,delayed release TAKE 1 TABLET BY MOUTH TWICE DAILY ON AN EMPTY STOMACH. WAIT 30 MINUTES AND THEN EAT TO ACTIVATE THE MEDICATION. TAKE BEFORE BREAKFAST AND SUPPER. active Pepcid active quetiapine ER 200 mg tablet,extended release 24 hr TAKE 1 TABLET BY MOUTH 3 HOURS BEFORE GOING TO BED. active quetiapine ER 300 mg tablet,extended release 24 hr TAKE 1 TABLET BY MOUTH ONCE DAILY DIRECTED 3 HOURS BEFORE GOING TO BED active quetiapine ER 50 mg tablet,extended release 24 hr TAKE 1 TABLET BY MOUTH EVERY NIGHT AT BEDTIME. TAKE WITH THE 200 MG DOSE FOR A TOTAL DAILY DOSE OF 250 MG AT BEDTIME. active Seroquel active Stelara 45 mg/0.5 mL subcutaneous syringe acti ve Stool Softener-Laxative 8.6 mg-50 mg tablet TAKE 1 TABLET BY MOUTH TWICE DAILY NEEDED FOR CONSTIPATION active timolol maleate 0.5 % eye drops active Ventolin HFA 90 mcg/actuation aerosol inhaler INHALE 2 PUFFS BY MOUTH EVERY 6 HOURS NEEDED FOR COUGH OR WHEEZE active zolpidem ER 12.5 mg tablet,extended release,multiphase TAKE 1 TABLET BY MOUTH AT BEDTIME NEEDED active Allergies Allergen Reaction Severity Comment Documented Date Source Sravanthi ANDERSON [facility] CHANTIX [facility] CODEINE [facility] LATUDA [facility] LYRICA [facility] SULFA (SULFONAMIDE ANTIBIOTICS) [facility] Problems Problem Status Onset Date Problem Type Date of Resoluti on Source History of repair of hip joint active 2023-08-18 ProblemAct [facility] Osteoarthritis of right hip joint active 2023-03-31 ProblemAct [facility] Arthritis of hip active 2022-12-16 ProblemAct [facility] Osteoarthritis of left hip joint active 2022-12-16 ProblemAct [facility] History of total replacement of left hip joint active 2023-03-02 ProblemAct [facility] Surgical follow-up active 2023-06-23 ProblemAct [facility] Encounters Encounter Type Encounter Reason Primary Diagnosis Location Date Ambulatory [facility] [place] 07/04/2024 Ambulatory [facility] [place] 11/16/2023 Ambulatory [facility] [place] 06[facility]26/2023 Ambulatory [facility] [place] 06/23/2023 Ambulatory [facility] [place] 06/23/2023 Ambulatory [facility] [place] 05[facility]25/2023 Ambulatory [facility] [place] 03/02/2023 Ambulatory [facility] [place] 02/03/2023 Ambulatory [facility] [place] 12/16/2022 Ambulatory [facility] [place] 05/16/2022
== END 2024-12-30 12:37 | disposition home or self-care (01) ==
LOC: HO.HNS 10:49
PROVIDERS: PCP Internal Medicine; Referring Provider Physician Assistant; Visit Provider Physician Assistant
DX: M53.3 Sacrococcygeal disorders, not elsewhere classified (principal); G89.29 Other chronic pain
CPT/HCPCS: 99204

== ENCOUNTER → 2024-12-30 10:48 | Outpatient (BNVA) | payer MEDICARE, MEDICAID, SELFPAY | PROVIDERS: PCP Internal Medicine; Referring Provider Physician Assistant; Visit Provider Physician Assistant | DX: M53.3 Sacrococcygeal disorders, not elsewhere classified (principal); G89.29 Other chronic pain | CPT/HCPCS: 99202 ==

== ENCOUNTER 2025-02-13 11:03 | Outpatient (AMB) | payer MEDICARE, MEDICAID, SELFPAY ==
[2025-02-13 11:09] VITALS: BMI 29.6
--- NOTE | 2025-02-13 11:09 | A.PHYSOV_ITS ---
Vital Signs 02/13/25 11:09 Height 5 ft 8 in Weight 195 lb BMI 29.6 Intake Visit Reasons: NPV ARNALDO REF ACUTE RT SIDED LOW BACK PAIN W/SCI Intake Note: Patient is 64 year old male in office today as a new patient for back pain. Allergies codeine Allergy (Unknown, Verified 02/13/25 11:08) Unknown diphenhydramine (From Benadryl) Allergy (Unknown, Verified 02/13/25 11:08) Unknown lurasidone (From Latuda) Allergy (Unknown, Verified 02/13/25 11:08) Unknown morphine Allergy (Unknown, Verified 02/13/25 11:08) Unknown pregabalin (From Lyrica) Allergy (Unknown, Verified 02/13/25 11:08) Unknown varenicline (From Chantix) Allergy (Unknown, Verified 02/13/25 11:08) Unknown HPI Comments Details: History of Present Illness The patient is a 64 year old female presenting for a follow-up of chronic neck and low back pain. She has a history of receiving multiple lumbar, thoracic, and cervical epidural injections for her pain, with the last visit in June of 2017. Her symptoms have worsened after two recent falls. The first fall was out of her bed, and a second more severe fall led to an emergency room visit for extensive bruising. Since the first fall, she has developed pain on her right side, which makes it difficult to walk or lie on that side. Past medical history is significant for lung cancer treated with surgery three years ago, and she is currently cancer-free. She underwent bilateral hip replacements about a year and a half ago, which were confirmed to be fine six months ago. She has also had prior neck and shoulder surgeries. She reports a history of hair loss secondary to cortisone injections. Pain Description - Onset: The patient reports new right-sided pain that started after a fall out of bed. - Location: The pain is localized to the right side, specifically in the sacroiliac joint area. - Radiation: The pain radiates into the groin and hip. - Exacerbating Factors: Pain is worsened by lying on her right side and with twisting movements. - Chronicity: The patient also has chronic neck and thoracic pain, which has worsened since her recent falls. - Associated Symptoms: The pain causes difficulty with walking. Results - MRI: Recent MRI of the lumbar spine was reviewed, it was done on 09/17/2024. Diffuse degenerative changes were demonstrated. Multilevel neural foraminal narrowing was demonstrated, bilateral L4-L5 moderate neural foraminal stenosis PFSH Medical History (Updated 02/13/25 @ 12:09 by Zeyad Carter DO) Muscle spasm Sacroiliac dysfunction Surgical History (Updated 02/10/25 @ 10:22 by Amanda Mcgowan MA) History of hip replacement History of lung surgery H/O shoulder surgery Social History (Updated 02/13/25 @ 11:11 by Amanda Mcgowan MA) Household Members: Spouse Alcohol intake: current Alcohol intake frequency: does not drink Patient Tobacco Use Status: Former Tobacco user Substance Use Type Other:: norris Review of Systems Narrative Review of Systems - Musculoskeletal: Reports chronic neck and thoracic pain, now worsened after falls. - Neurological: Reports new-onset right-sided pain radiating to the groin and hip. - General: Reports being bruised everywhere after a recent severe fall. - Dermatologic: Reports hair loss with previous cortisone injections. Physical Exam Exam Exam: Physical Exam - Musculoskeletal: Palpation elicits tenderness over the right sacroiliac joint. Positive right SI compression test, fabere and Conway signs - Musculoskeletal: There is no tenderness on palpation of the left sacroiliac joint. - Musculoskeletal: Passive truncal rotation elicits pain over the right sacroiliac joint region. Neurological examination of lower extremities was nonfocal. Her gait was antalgic on the right side. Patient demonstrated no upper motor neuron signs. Vital Signs: BMI result Body Mass Index 29.6 Assessment & Plan Assessment & Plan (1) Chronic SI joint pain: Code(s): M53.3 - Sacrococcygeal disorders, not elsewhere classified; G89.29 - Other chronic pain Category: Medical (2) Sacroiliac dysfunction: Code(s): M53.3 - Sacrococcygeal disorders, not elsewhere classified Category: Medical (3) Muscle spasm: Code(s): M62.838 - Other muscle spasm Category: Medical Plan Pain Management - Analgesia: The patient requests a refill of tizanidine 4 mg, a muscle relaxer, which she has used previously for pain. - Adverse Effects: She reports developing hair loss from prior cortisone injections and wishes to avoid them. - Activities of Daily Living: Her pain interferes with her ability to walk and to lie on her right side. Plan Patient was informed and verbally consented to the use of an ambient scribe for clinic note documentation during this visit. 1. Sacroiliac Joint Pain The patient's right-sided pain is suspected to be from the sacroiliac (SI) joint, consistent with her history of a fall and focal tenderness on exam. The p miroslava is to perform two sequential diagnostic right SI joint injections using two different local anesthetics without steroids, due to her history of hair loss with cortisone. She will be evaluated for potential minimally invasive right SI joint fusion. The patient was counseled that these are for diagnostic purposes and not for long-term relief. She will be asked to keep a pain diary to track the degree and duration of relief. Although she has required sedation for prior procedures, she has agreed to proceed without sedation to allow for immediate assessment of pain relief. 2. Muscle Spasm Of Back To manage associated muscle spasms, a prescription for tizanidine 4 mg will be sent to her pharmacy. She is instructed to take one tablet up to three times a day as needed, and may take two tablets at night, with counseling on potential drowsiness. 3. Chronic Neck And Thoracic Pain The patient's chronic neck and thoracic pain, which has worsened since her falls, will be addressed at a follow-up appointment after her sacroiliac joint pain is evaluated and managed. Discussion Notes I discussed with the patient that her right-sided pain, which began after a fall, is likely from her sacroiliac (SI) joint, a finding supported by her physical exam. I explained the plan to proceed with two diagnostic right SI joint injections. Due to her history of hair loss with cortisone, we will use on ly local anesthetic as a diagnostic tool, and I clarified that this is not expected to provide long-term pain relief. I instructed her on the importance of keeping a pain diary after the procedures to monitor the percentage and duration of pain relief, which is critical for confirming the diagnosis. We discussed that while she typically requires sedation, performing the injection without it would allow us to assess for immediate pain relief, and she agreed to this approach. I will send a prescription for tizanidine for muscle spasms and we will schedule a follow-up to address her chronic neck and thoracic pain after the SI joint evaluation. Patient Instructions - Our office will call you to schedule two diagnostic injections in your right hip/buttock area to find the cause of your pain. - These injections will only use a local numbing medicine (no steroids) because of your past side effect of hair loss. - The purpose of these shots is to diagnose the problem, not to provide long-te rm pain relief. - After the procedure, it is very important to keep a pain diary to track how much your pain is reduced and for how many hours. - A prescription for Tizanidine 4 mg, a muscle relaxer, will be sent to your pharmacy. You can take one pill up to three times a day. You can take two pills at bedtime if needed, but be aware it can cause drowsiness. - We will manage your chronic neck and back pain at a future visit after we address this new pain. - Please take precautions to prevent future falls. Medications: New tizanidine 4 mg PO TID PRN 90 tabs 2RF muscle spasticity 30 days G89.29 - Other chronic pain, M53.3 - Sacrococcygeal disorders, not elsewhere classified, M62.838 - Other muscle spasm Coding Level of Care Code New Pt Level 4 (16370) Add On Problem Visit Only Diagnoses Chronic SI joint pain M53.3; G89.29 Sacroiliac dysfunction M53.3 Muscle spasm M62.838
--- OUTSIDE RECORDS SUMMARY | 2025-02-13 14:28 | XMS_ITS | Clinical Summary ---
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
--- OUTSIDE RECORDS SUMMARY | 2025-02-13 14:28 | XMS_ITS | Clinical Summary ---
Author Organization [facility] Address [address] [place] [address] Phone Care Team Providers Care Predator Control Trapper Name Role Phone Kyung Billy MD Primary [...] Caplyta 42 mg capsule 07/19/19 25 Active latanoprost (XALATAN) 0.005 % ophthalmic solution [...] the skin every 3 (three) months. 11/19/19 25 Active Gentle Laxative, bisacodyl, 5 mg EC tablet TAKE 1 TABLET BY MOUTH ONCE EACH DAY IF NEEDED FOR CONSTIPATION. DO NOT CRUSH, CHEW, OR SPLIT. 10 tablet 02/01/20 25 Active ursodioL (ACTIGALL) 300 mg capsuleIndicatio ns:Antimitochond rial antibody positive Take 2 capsules (600 mg total) by mouth 1 (one) time each day. 180 each 1 07/31/19 25 025 bisacodyL (DULCOLAX) 5 mg EC tablet Take 1 tablet (5 mg total) by mouth 1 (one) time each day if needed for constipation. Do not crush, chew, or split. 10 tablet 01/17/20 25 025 Discontinued Active Problems Problem Noted Date Diagnosed Date Sacroiliitis, not elsewhere classified Assessment & Plan (10/01/2024 5:05 PM EDT): [...] of lung cancer 01/27/2024 Assessment & Plan (01/15/2025 1:51 PM EST): Ms. Ibanez is a 64-year-old female who had a robotic left lower lobectomy in June 2022 for stage I adenocarcinoma. The patient's most recent surveillance chest CT scan done December 2024 shows no new or worsening pulmonary nodule, or thoracic adenopathy, to suggest recurrence or new disease. She does have scattered micronodules bilaterally measuring 4 mm or less, as well as an 8 mm ground glass nodule at the left apex (series 4; image 53) which are stable compared to previous imaging. Will continue with routine chest CT surveillance the next of which will be in 1 year, in December 2025. The patient will have a visit after that scan as part of her surveillance protocol. Assessment & Plan (08/03/2024 11:57 AM EDT): [...] diastolic dysfunction 02/03/2023 Arthritis of hip 12/16/2022 Multiple pulmonary nodules 08/12/2021 Overview (11/29/2023): Last Assessment & Plan: [...] Plan (08/19/2024 4:08 PM EDT): Chronic obstructive pulmonary disease 07/31/2019 Assessment & Plan (06/20/2024 10:03 AM [...] and treatment of lung cancer should this turner and former automatic what it is. Options moving forward would [...] months. 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 03/22/2018 Mild cognitive impairment 01/05/2017 Overview (11/29/2023): [...] lumbar intervertebral disc 08/10/2008 Bipolar affective disorder 06/25/2008 Assessment & Plan (08/19/2024 4:08 PM [...] Encounters Date Type Department Care Team Description 01/16/2025 3:15 PM EST Office Visit Thoracic Surgery - [place] [address] [phone] Genevieve Cortes PA History of lung cancer (Primary Dx); Multiple pulmonary nodules 01/16/2025 Telephone Adult [address] [phone] Tamra Ray PA 12/31/2024 7:53 AM EST - 12/31/2024 11:59 PM EST Hospital Encounter [facility] CT Scan [address] [place] [id number] History of lung cancer Discharge Disposition: Home or Self Care 12/22/2024 Results Follow-Up Adult Medicine [address] [phone] Kyung Guerra MD 12/20/2024 1:15 PM EDT Office Visit Adult [address] [phone] Kyung Guerra MD Hypothyroidism, unspecified type (Primary Dx); Prediabetes; Screening for depression 12/06/2024 Telephone [facility] [address] [phone] Stephanie Elaine MA 12/02/2024 Telephone [facility] [address] [phone] Stephanie Elaine MA from Last 3 Months Immunizations Immunization Administration [...] SLIDE) OTHER SURGICAL HISTORY 07/18/19 05 PROCEDURE: CT TOTAL ABDOMINAL HYSTERECT W/WO RMVL TUBE OVARY COLONOSCOPY 07/30/19 04 PROCEDURE: HISTORICAL COLONOSCOPY; COMMENT: Negative ESOPHAGOGASTRODUODENOSCOPY 07/30/19 04 PROCEDURE: CT ESOPHAGOGASTRODUODENOSCOPY TRANSORAL DIAGNOSTIC; COMMENT: Negative CHOLECYSTECTOMY 02/27/18 84 PROCEDURE: CT CHOLECYSTECTOMY OTHER SURGICAL HISTORY PROCEDURE: HISTORY OTHER; COMMENT: ureterolysis - Dx retroperitoneal fibrosis UPPER GASTROINTESTINAL ENDOSCOPY 08/10/19 14 N/A PROCEDURE: CT UPPER GI ENDOSCOPY PERFORMED; COMMENT: Localized antral gastritis: Biopsies negative for H. pylori. COLONOSCOPY 05/13/19 16 PROCEDURE: HISTORICAL COLONOSCOPY; COMMENT: [facility]; diminutive tubular adenoma 2. COLONOSCOPY 06/12/19 21 N/A PROCEDURE: HISTORICAL COLONOSCOPY; COMMENT: 5 mm sigmoid colon polyp: Pathology = hyperplastic. OTHER SURGICAL HISTORY 07/07/19 23 Left PROCEDURE: CT THORACOSCOPY W/LOBECTOMY SINGLE LOBE; COMMENT: LLL Medical History Medical History Date Comments Cancer ([facility] V24, [facility] V28) DX:Cancer (HCC) COPD (chronic obstructive pu lmonary disease) ([facility] V24, [facility] V28) DX:COPD (chronic o bstructive pulmonary disease) ([facility]) Anemia DX:Anemia Hypothyroidism DX:Hypothyroidis m GERD (gastroesophageal [...] Psoriasis 07/05/2016 DX:Psoriasis Superficial spreading melano ma (CMS/HCC V24, CMS/HCC V28) 12/05/2017 DX:Superficial spreading me lanoma (HCC); COMMENT: Right medial heel 11/2017 - -SUBTYPE: SUPERFICIAL SPREADING -DEPTH OF INVASION ([place]): 0.9 MM. (AT LEAST) -JUAN LEVEL: IV (AT LEAST) Malignant melanoma of foot, right (CMS/HCC V24, CMS/HCC V28) 02/08/2018 DX:Malignant melanoma of fo ot, right (HCC); COMMENT: Right medial heel 11/2017 - -SUBTYPE: SUPERFICIAL SPREADING -DEPTH OF INVASION ([place]): 0.9 MM. (AT LEAST) -JUAN LEVEL: IV (AT LEAST) S/p wide excision and sentinel LN bx, 01/31/19 Dr Espitia Ascending aorta dilatation ( CMS/HCC V24) 10/05/2020 DX:Ascending aorta dilatatio n (HCC); COMMENT: 3.7. cm 09/25/2020 ECHO Ascending aorta dilatation ( CMS/HCC V24) 10/05/2020 DX:Ascending aorta dilatatio n (HCC); COMMENT: 3.7. cm 09/25/2020 ECHO: EF 60-65% Lung cancer (CMS/HCC V24, CM S/HCC V28) DX:Lung cancer (HCC) Status post lobectomy [...] (H61.813) Lyme disease 10/22/2007 Arthritis Autoimmune disorder ([facility] V24) Anxiety Seizures ([facility] V24, [facility] V28) Family History Medical History Relation Name [...] Record ed Within the last 3 months, rober doty many times did you visit the emergency [...] care for your loved ones. For example, child & adolescent psychiatrist or elderly care for an older adult? [...] Orientation Straight 03/27/2024 8: 49 AM EST Last Filed Vital Signs Vital Sign Reading Time Taken Comments Blood Pressure 138/82 01/16/2025 3:23 PM EST Pulse 77 01/16/2025 3:23 PM EST Temperature 36.7 C (98.1 F) 01/16/2025 3:23 PM EST Respiratory Rate 18 01/16/2025 3:23 PM EST Oxygen Saturation 97% 01/16/2025 3:23 PM EST Inhaled Oxygen Concentration - - Weight 88.7 kg (195 lb 8 oz) 01/16/2025 3:23 PM EST Height 172.7 cm (5' 8 ) 01/16/2025 3:23 PM EST Body Mass Index 29.73 01/16/2025 3:23 PM EST Plan of Treatment Upcoming Encounters Date Type Department Care Team (Late st Contact Info) Description 06/23/2025 11:30 AM EDT Office Visit Adult Medicine [facility] [address] [place], [place] [phone] Tamra Ray PA [address] [place], [place] Health Maintenance Due Date Last Done Comments Drug Screen 1960 Non-Opioid Controlled Substance Agreement 1960 Hepatitis A Vaccines (1 of 2 - Risk 2-dose series) 10/08/1979 RSV Immunization Adult Patients (1 - Risk 50-74 years 1-dose series) 2010 Hepatitis B Vaccines (1 of 3 - Risk 3-dose series) 2020 HIV Screening 02/03/2022 Medicare Annual Wellness Visit 02/03/2022 Pneumococcal Vaccine: 50+ Years (2 of 2 - PCV) 04/27/2022 04/27/2021 Breast Cancer Screening 12/21/2024 12/22/19 24, 12/22/2023, 05/03/2021, Additional history exists COVID-19 Vaccine (8 - Moderna risk 2024- season) 2025 12/03/2024, 11/29/2022, 11/29/2022, Additional history exists Social [...] Procedure Name Priority Date/Time Associated Diagnosis Comments CT CHEST WO CONTRAST Routine 12/31/2024 8:08 AM EST History of lung cancer HEMOGLOBIN A1C Routine 12/20/2024 1:36 PM EDT Prediabetes THYROID STIMULATING HORMONE Routine 12/20/2024 1:36 PM EDT Hypothyroidism, unspecified type LIPID PANEL WITH REFLEX TO DIRECT LDL Add-On 07/28/2024 10:54 AM EDT HEPATITIS C ANTIBODY Routine 02/02/2024 9:16 AM EST Elevated liver enzymes SCREENING MAMMOGRAPHY BI 2-VIEW BREAST INC CAD Routine 12/22/2023 11:20 AM EDT Encounter for screening mammogram for malignant neoplasm of breast HM DEPRESSION SCREENING Routine 09/21/2023 COLONOSCOPY Routine 06/11/2020 from Last 3 Months or Most Recently Relevant to Health Maintenance Results * CT Chest wo Contrast (12/31/2024 8:08 AM EST) Anatomical Region Laterality Modality Body Computed Tomogra phy 01/01/2025 7:25 AM EST Impressions 01/01/2025 7:38 AM EST No evidence of new or recurrent malignancy. No suspicious interval change -------- FINAL REPORT -------- Dictated By: Jose Pringle Dictated Date: 01/01/2025 07:25 ET Assigned Physician: Jose Pringle Reviewed and Electronically Signed By: Jose Pringle Signed Date: 01/01/2025 07:38 ET Workstation ID: [id number] Transcribed By: Self Edit Transcribed Date: 01/01/2025 07:25 ET Narrative 01/01/2025 7:38 AM EST EXAMINATION: CT CHEST WITHOUT CONTRAST CLINICAL INFORMATION: History of lung cancer. July 06, 2022 underwent a robotic left lower lobectomy for a Stage 1, Acinar pulmonary adenocarcinoma, (pT1a, pN0). COMPARISON: Portions of previous 07/26/24 TECHNIQUE: Multidetector CT. Examination of the chest. Examination of the chest without IV contrast. Reformatting in the coronal and sagittal planes. DLP: 732 mGy-cm Dose optimization was performed including the use of low-dose iterative reconstruction technique with automatic exposure control based on patient size. Type of contrast: None Volume of IV contrast: None Volume of contrast discarded: 0 mL FINDINGS: LUNG: No suspicious abnormality of the trachea or mainstem bronchi. No suspicious abnormality of the stump of the left lower lobectomy. There is no new suspicious pulmonary mass or nodule. There are scattered micronodules bilaterally best appreciated on the maximum intensity projection series. These measure 0.4 cm or less and are unchanged. There is unchanged pleural parenchymal scarring in the apex right greater than left. MEDIASTINUM: There are no enlarged mediastinal or hilar lymph nodes. No suspicious abnormality of the esophagus CARDIAC: The left ventricle appears enlarged. There is no significant pericardial fluid. CORONARY CALCIFICATION: There are moderate coronary calcifications. VASCULAR: The distal aortic arch measures 2.9 cm. The central pulmonary arteries are prominent. PLEURA: There is no pleural fluid or pneumothorax AXILLA/CHEST WALL: There are no enlarged axillary lymph nodes. No chest wall mass demonstrated VISUALIZED UPPER ABDOMEN: No suspicious abnormality on limited assessment of the visualized upper abdomen. MUSCULOSKELETAL: No suspicious focal bony lesion. Evidence of lower cervical instrumentation. Procedure Note Jose Pringle MD - 01/01/2025 EXAMINATION: CT CHEST WITHOUT CONTRAST CLINICAL INFORMATION: History of lung cancer. July 06, 2022 underwent a robotic left lowerlobectomy for a Stage 1, Acinar pulmonary adenocarcinoma, (pT1a, pN0). COMPARISON: Portions of previous 07/26/24 TECHNIQUE: Multidetector CT. Examination of the chest. Examination of the chest without IV contrast. Reformatting in the coronal and sagittal planes. DLP: 732 mGy-cm Dose optimization was performed including the use of low-dose iterativereconstruction technique with automatic exposure control based on patientsize. Type of contrast: None Volume of IV contrast: None Volume of contrast discarded: 0 mL FINDINGS: LUNG: No suspicious abnormality of the trachea or mainstem bronchi. Nosuspicious abnormality of the stump of the left lower lobectomy. There is no new suspicious pulmonary mass or nodule. There are scattered micronodules bilaterally best appreciated on themaximum intensity projection series. These measure 0.4 cm or less and areunchanged. There is unchanged pleural parenchymal scarring in the apex right greaterthan left. MEDIASTINUM: There are no enlarged mediastinal or hilar lymph nodes. Nosuspicious abnormality of the esophagus CARDIAC: The left ventricle appears enlarged. There is no significantpericardial fluid. CORONARY CALCIFICATION: There are moderate coronary calcifications. VASCULAR: The distal aortic arch measures 2.9 cm. The central pulmonaryarteries are prominent. PLEURA: There is no pleural fluid or pneumothorax AXILLA/CHEST WALL: There are no enlarged axillary lymph nodes. No chestwall mass demonstrated VISUALIZED UPPER ABDOMEN: No suspicious abnormality on limited assessmentof the visualized upper abdomen. MUSCULOSKELETAL: No suspicious focal bony lesion. Evidence of lowercervical instrumentation. IMPRESSION: No evidence of new or recurrent malignancy. No suspicious interval change -------- FINAL REPORT -------- Dictated By: Jose Pringle Dictated Date: 01/01/2025 07:25 ET Assigned Physician: Jose Pringle Reviewed and Electronically Signed By: Jose Pringle Signed Date: 01/01/2025 07:38 ET Workstation ID: [id number] Transcribed By: Self Edit Transcribed Date: 01/01/2025 07:25 ET Haley Cee RF ENGINEER IMG CT PROCEDURES Final Res ult * Thyroid stimulating hormone (12/20/2024 1:36 PM EDT) TSH 3.84 0.40 - 4.00 mcIU/mL LAB CHEMISTRY METHOD 12/20/2024 6:05 PM EDT [facility] Blood Venous blood specimen / Unknown Venipuncture / Unknown 12/20/2024 1:36 PM EDT 12/20/2024 1:36 PM EDT Kyung Billy MD LAB BLOOD ORDERABL ES Final Result Performing Organization Address City/[facility]/ZIP Co de Phone Number [facility] [address] [place] [address], [place] [phone] * Hemoglobin A1c (12/20/2024 1:36 PM EDT) [facility] Hemoglobin A1C 5.6 <6.5 % LAB CHEMISTRY METHOD 12/20/2024 9:01 PM EDT [facility] Mean Bld Glu Estim. 114 mg/dL LAB CHEMISTRY METHOD 12/20/2024 9:01 PM EDT [facility] Blood Venous blood specimen / Unknown Venipuncture / Unknown 12/20/2024 1:36 PM EDT 12/20/2024 1:36 PM EDT Kyung Billy MD LAB BLOOD ORDERABL ES Final Result [facility] [address] [place] [address], [place] [phone] * (ABNORMAL) Lipid panel with reflex to direct LDL (07/28/2024 10:54 AM EDT) Pathologist [facility] Cholesterol 172 0 - 200 mg/dL LAB CHEMISTRY METHOD 07/28/2024 1:08 PM EDT [facility] Triglycerides 190(H) 0 - 150 mg/dL LAB CHEMISTRY METHOD 07/28/2024 1:08 PM EDT [facility] HDL 43 >=40 mg/dL LAB CHEMISTRY METHOD 07/28/2024 1:08 PM EDT [facility] LDL Calculated 91 0 - 100 mg/dL LAB CHEMISTRY METHOD 07/28/2024 1:08 PM EDT [facility] VLDL Cholesterol Tl 38 mg/dL LAB CHEMISTRY METHOD 07/28/2024 1:08 PM EDT [facility] Non HDL Chol. (LDL+VLDL) 129 <145 mg/dL LAB CHEMISTRY METHOD 07/28/2024 1:08 PM EDT [facility] Chol/HDL Ratio 4.0 0.0 - 4.4 LAB CHEMISTRY METHOD 07/28/2024 1:08 PM EDT [facility] Blood Venous blood specimen / Unknown Venipuncture / Unknown 07/28/2024 10:54 AM EDT 07/28/2024 12:01 PM EDT Filippo PORTILLO LAB BLOOD ORDERABLES Final Re sult [facility] [address] [place] [address], [place] [phone] * Hepatitis C antibody (02/02/2024 9:16 AM EST) Hepatitis C Antibody Negative Negative LAB CHEMISTRY METHOD 02/02/2024 1:09 PM EST [facility] Blood Venous blood specimen / Unknown Venipuncture / Unknown 02/02/2024 9:16 AM EST 02/02/2024 9:16 AM EST Segundo PORTILLO LAB BLOOD ORDERABLES Final Resu lt Performing Organization Address City/[facility]/ZIP Co de Phone Number [facility] [address] [place] [address], [place] [phone] * SCREENING MAMMOGRAPHY BI 2-VIEW BREAST INC [...] evidence of malignancy. BI-RADS 1 - negative [address] [id number] Procedure Note Lillie Barrios MD - 12/30/2023 [...] evidence of malignancy. BI-RADS 1 - negative [address] [id number] Kyung Billy MD IMG XR PROCEDURES Final Result * Depression Screening (09/21/2023) Depression Screening Abstracted Historical Provider HEALTH MAINTENANCE Final Result * Colonoscopy (06/11/2020) Colonoscopy No interpreta tion,abstr acted Anatomical Region Laterality Modality Other us Historical Provider HEALTH MAINTENANCE Final Result from Last 3 Months or Most Recently Relevant to Health Maintenance Insurance MEDICARE MEDICAID - [place] Care Teams Predator Control Trapper Relationship Specialty Start Date End [place] [phone] PCP - General Internal Medicine 09/27/21
--- OUTSIDE RECORDS SUMMARY | 2025-02-13 14:28 | XMS_ITS | Data Portability ---
Author Organization [place] - [facility], Allergy Address [address] [address] Care Team Providers Care Airport Maintenance Laborer Name Role Phone JEANNE OCHOA Primary Care Provider Assessment Encounter Date Assessment Date Assessment LastModified [...] surgical removal of exostosis given chronic infection. [email or web address] Not available 10/19/2023 10:32:21 Plan of Treatment Reminders Order Date Submit Date Provider Last Modified By Organization Details Last Modified Time Details Appointments None recorded. Lab fungus, culture, unspecified specimen 2023 024 [email or web address] [facility] (Centralized Electronic Ordering - All Locations), Patient Can Go To The Location Of Their Choice, [id number] 4 15:31:52 culture, bacterial 2023 024 [email or web address] [facility] (Centralized Electronic Ordering - All Locations), Patient Can Go To The Location Of Their Choice, [address] 4 15:31:52 Referral None recorded. Procedures None recorded. Surgeries None recorded. Imaging None recorded. Medication Orders clotrimazol e 1 % topical solution 2023 024 [facility], [address] [facility], [place], [address], 10:02:49 Patient TargetsNo targets recorded. Patient InstructionsNo instructions recorded. Reason for Referral None Reported. Results Created Date Observation Date Name Description Value Unit Range Abnormal Flag Note LastModifiedBy Organization Detail LastModifiedTime 10/19/19 24 10/23/2023 ANAER OBIC AND AEROB IC CULTU RE anaerobic culture Final report Not Available [facility] ([facility]) [address] [place], [address], 11/17/2023 12:09:50 10/19/1910/23/2023 ANAER OBIC AND AEROB IC CULTU RE result 1 COMMEN T No anaer obic growt h in 72 hours . Not Available [facility] ([facility]) [address] [facility], [place], [address], 11/17/2023 12:09:50 10/19/19 24 10/23/2023 ANAER OBIC AND AEROB IC CULTU RE aerobic culture Final report abnormal Not Available [facility] ([facility]) [address] [place], [address], 11/17/2023 12:09:50 10/19/19 24 10/23/2023 ANAER OBIC AND AEROB IC CULTU RE result 1 Kocuri a varian s abnormal Recov ered from broth only. Susce ptibi lity not yarely lly perfo rmed on this organ ism. Not Available [facility] ([facility]) [address] [place], [address], 11/17/2023 12:09:50 10/19/19 24 10/20/2023 FUNGU S CULTU RE WITH STAIN fungus stain Final report Not Available [facility] ([facility]) [address] [place], [address], 11/17/2023 12:09:51 08/22/10/20/2023 FUNGU S CULTU RE WITH STAIN result 1 COMMEN T COLEEN/C alcof luor prepa ratio n: no fungu s obser mykel. Not Available [facility] ([facility]) 0 [facility], [place], [address], 11/17/2023 12:09:51 10/19/19 24 11/17/2023 FUNGU S CULTU RE WITH STAIN fungus (mycology) culture Final report Not Available [facility] ([facility]) [address] [facility], [place], [address], 11/17/2023 12:09:51 10/19/1911/17/2023 FUNGU S CULTU RE WITH STAIN result 1 COMMEN T No yeast or mold isola paty after 4 weeks . Not Available [facility] ([facility]) [address] [facility], [place], [address], 11/17/2023 12:09:51 Result Notes None recorded. Problems Name Problem SNOMED Code Status Onset Date Resolution Date Notes Provider Name and Address Organization Details Recorded Time Bilateral exostosis of external ear canals 34335909704 34296 Active 2023 Exostosis of external canal, bilateral ; Note: Date Diagnosed : 07/06/2023 2:36 PM (H61.813) Not Available [facility] 4 02:36:13 Infective otitis externa of bilateral ears 28515476895 38892 Active 2023 Other infective otitis externa, bilateral ; Note: Date Diagnosed : 07/06/2023 2:36 PM (H60.393) Not Available Counts include 234 beds at the [facility] 4 02:36:17 Bilateral diffuse otitis externa 70885965845 24069 Active 2023 VANESA LEOS PA-C [address] [facility],[place] [address], [place], [address] , [facility] - [facility] 4 10:02:02 Otorrhea 71707196 Active 2023 VANESA LEOS PA-C [address] [facility],[place] [address], [place], [address] , [facility] 4 10:02:11 Problem Notes None recorded. Procedures Surgical History Date Name Laterality Status Provider Name and Address Organization Details Recorded Time 4 Cerumen removal without microscope bilat completed DOLORES TORREZ PA-C [address] [facility] [address], [place], [address], [facility] - [facility] 10/19/2023 10:14:36 Imaging Results None recorded. Procedure [...] tablet,del ayed release active Medicatio n ID: [id number] Br and Name: aspirin S end Method: E-Prescri bed Subs Allowed: subs OK Medica tionGener icName: aspirin Not Available Not Available Not Available acetaminop hen 500 mg tablet active Medicatio n ID: [id number] Br and Name: acetamino phen Send Method: [...] 750 mg tablet active Medicatio n ID: [id number] Br and Name: methocarb spencer Send Method: [...] 20 mg tablet active Medicatio n ID: [id number] Br and Name: furosemid e Send Method: E-Prescri bed Subs Allowed: subs OK Specia l Instructi on: TAKE 1 TABLET BY MOUTH ONCE DAILY NEEDED FOR UNCONTROL LED ANKLE SWELLING Medicatio nGenericN isabelle: furosemid e Not Available Not Available Not Available lorazepam 1 mg tablet active Medicatio n ID: [id number] Br and Name: lorazepam Send Method: E-Prescri [...] % drops 2023 active Medicatio n ID: [id number] Du ration Value: 14 Brand Name: Flac [...] Updated DateTime 10/19/2023 172.72 cm 34.2 kg/m2 889414.28 g Catarina Jain [place] - [facility] 10/19/2023 09:31:27 Social History None recorded. Functional Status None recorded. Mental Status None recorded. Family History Nothing Reported. Medical History No medical history recorded. Gynecological HistoryNo gynecological history recorded. Obstetrics History GPAL:G 0 P 0 0 0 0 Past Encounters Encounter ID Performer Location Encounter Start Date Encounter Closed Date Diagnosis/Indication Diagnosis SNOMED-CT Code Diagnosis ICD10 Code Diagnosis IMO Codes Diagnosis Note [id number] VANESA LEOS PA-C [facility] [address] [address] 10/19/2023 09:10:22 10/19/2023 09:55:48 Bilateral diffuse otitis externa 7384318846 167590 H60.313 Bilateral exostosis of external ear canals 5966510742 674466 H61.813 Health Concerns Section Related Observation LastModified by Organization Detai ls LastModified Time None Recorded Concern Status LastModified by Organization Details LastModified Time None Recorded Advance Directives Directive None Recorded Payers Insurance Date Sequence Insurance Name Policy Number Policy Sandoval Covered Member ID Sandoval Member ID Guarantor Name 11/12/2023 2 [place] [facility] Ava Maciase [id number] Ava Ibanez 11/12/2023 1 [place]IC[place] B-[place] [employer] Ava Jackson Shamar [id number] Ava Ibanez Notes Date Note Type Note [...] Was recently evaluated for jaw pain and AR was ruled out at [facility] last week. She denies ear drainage, tinnitus, or dizziness. Reports needing to increase TV volume to hear. LISA NOLASCO MD [address] [place] [address], [place], [address], [facility] - [facility] 10/19/2023 16:59:55 OBGyn Episode No OBEpisode recorded.
--- OUTSIDE RECORDS SUMMARY | 2025-02-13 14:28 | XMS_ITS | Clinical Summary ---
Author Organization [facility] Address [address] [place] [address] Phone Care Team Providers Care Top Precipitator Operator Name Role Phone Kyung Billy MD Primary Care Prov ider Allergies No known active allergies Medications No known medications Social History Tobacco Use Types Packs/Day Years [...] Info) Description 04/16/2025 1:00 PM EST Telemedicine [facility] [address] [address] [place] [address] Ken Eng MD, MPH [address] [facility], [facility] [address] [email or web address] Health Maintenance Due Date Last Done [...] 05/22/2008 INFLUENZA VACCINE (#1) 2024 COVID-19 VACCINE ( - 2024-2 6 season) 2024 MAMMOGRAM 12/21/2025 [...] file Insurance MEDICARE PART A & B [address] [place], [place] [address]HEALTH MEDICARE PART A & B [facility] MEDICARE PART A & [place] & B [employer] MEDICARE PART A & [place] & B [facility] MEDICARE PART A & [place] B [facility] MEDICARE PART A & [place] & B [facility] MEDICARE PART [place] & [place] & B Member Subscriber Plan / Payer (Ef fective 2003-Present) Name:Ava Ibanez Member ID:[id number] Relation to Subscriber:Self Name:Ava Ibanez Subscriber ID:[id number] Payer ID:[id number] Group ID:Not on file Type:Medicare Address: [employer] [address] [place] MED[place] PART A & B [facility] Care Teams Top Precipitator Operator Relationship Specialty Start Date End Date Kyung Billy MD [address] [place] [address] PCP - General Internal Medicine 08/19/24 Additional Source Comments The information contained in this document represents components of the legal health record. It is not the complete legal health record.[facility]
--- OUTSIDE RECORDS SUMMARY | 2025-02-13 14:28 | XMS_ITS | Encounter Summary ---
Author Organization [facility] Address [address] [place] [address] Care Team Providers Care Shop Service Technician Name Role Phone Kyung Billy MD Primary Care Prov ider Encounter Details Date Type Department Care Team (Late st Contact Info) Description 12/22/2024 Results Follow-Up Adult Medicine [address] [phone] Kyung Billy MD [address] [place] [address] Social History Tobacco Use Types Packs/Day Years [...] documented in this encounter Progress Notes * Kyung Billy MD - 01/20/2025 11:01 AM EST We did not discuss about EKG. * Yessi Jones MA - 01/17/2025 5:[address] Boyce I dont see any documentation of you wanting ot to have this done, please advise documented in this encounter Plan of Treatment Upcoming Encounters Date Type Department Care Team (Late st Contact Info) Description 06/23/2025 11:30 AM EDT Office Visit Adult Medicine [facility] [address] [place], [place] [phone] Tamra Ray PA [address] [place], [place] documented as of this encounter Visit Diagnoses Not on filedocumented in this encounter Additional Health Concerns Assessment Noted Time PHQ-9 Depression Total Score: 19 025 12:54 PM EDT documented as of this encounter Care Teams Shop Service Technician Relationship Specialty Start Date End Date Kyung Billy MD [address] [place] [address] PCP - General Internal Medicine 09/27/21 documented as of this encounter
--- OUTSIDE RECORDS SUMMARY | 2025-02-13 14:28 | XMS_ITS | Data Portability ---
Author Organization [place] [facility] X[facility] Address [address] [place] [address] Care Team Providers Care Video Editing Internship Name Role Phone JEANNE MUHAMMAD Primary Care Provider [phone] VENKAT MARTINEZ Primary Care Provider [phone] Assessment Encounter Date Assessment Date Assessment LastModified [...] total hip replacement. Continue hip conditioning program. Besr-ctw-vzsbhbc medications as needed. The patient is an [...] Plan for right total hip replacement at [facility]. Not available 03/31/2023 10:51:56 05/25/2023 05/25/2023 HPI [...] patient was seen and evaluated by Asya Ly MS, PALexis in indirect conjunction with documenting/[facility] provider Chalo Lacy MD. He [...] pain relief in the hip and satisfactory baptism of function in terms of activities of [...] Continue to work on hip conditioning exercises. Bicy-dfp-cnwaqfe medications as needed. She is provided a [...] patient was seen and evaluated by Asya Ly MS, PA-C in indirect conjunction with [facility] provider Chalo Lacy MD. He agrees with history, physical examination, tests/diagnostic imaging, and treatment plan. Not available 08/18/2023 14:06:11 07/04/2024 07/04/2024 HPI : Patient is here for follow-up regarding her staged bilateral total hip replacements. She had a left hip replacement at [facility] in 2022 and then a right [...] I would like her evaluated by a [facility]. Exam and imaging are not consistent with [...] total hip arthroplast y (SURG) 2023 024 [facility], [address] [place] [address], [address], 4 11:22:06 Imaging XR, hip, unilateral, 2 or 3 view 2024 025 [email or web address], [address], [place], [address], 5 13:12:19 XR, hip, unilateral, 2 or 3 view 2024 025 [email or web address] 2 [facility], [address], [place], [address], 5 13:12:19 XR, hip, unilateral, 2 or 3 view 2023 024 [email or web address] 2 [facility], [address], [place], [address], 4 14:04:22 Medication Orders methocarbam ol 750 mg tablet 2023 024 [facility], [address] [place] [address], [address], 4 13:03:08 amoxicillin 500 mg capsule 2023 024 [facility], [address] [place] [address], [address], 4 14:04:46 Dilaudid 2 mg tablet 2023 024 [facility], [address] [place] [address], [address], 4 12:58:10 Patient TargetsNo targets recorded. Patient Instructions Encounter Date Encounter Id Patient Instructions Last Modified By Organization Details Last Modified Time 05/25/2023 [id number] physical therapy* Not availa ble 06/01/2023 10:26:23 08/18/2023 [id number] physical therapy * - Diagnosis: Contusion right hip superimposed on total joint arthroplasty. Evaluate and treat as indicated to reduce pain and to improve strength, mobility, stability, range of motion, and function. Please teach a home exercise plan and incorporate PT into patient's exercise routine. 2-3 sessions weekly for 6-8 weeks. Not available 08/25/2023 10:39:34 07/04/2024 [id number] AP pelvis, AP an d lateral radiographs [...] Recorded Time Malignant melanoma of lower limb 847289635 Active 2018 Malignant melanoma of right lower extremity including hip Not Available [facility] 5 23:56:13 Osteoarth ritis of left hip joint 12776128701 9108 Active 2022 Chalo Lacy MD [address], [place], [address] , [place] [facility], P 3 13:52:51 Arthritis of hip 71796656 Active 2022 Chalo Lacy MD [address], [place], [address] , [place] [facility], P 3 13:53:06 History of total replaceme nt of left hip joint 64643306718 02640 Active 2023 ASYA LY PA-C [address], [place], [address] , [place] [facility], P 4 10:33:37 Osteoarth ritis of right hip joint 55493883318 9107 Active 2023 Chalo Lacy MD [address], [place], [address] , [place] [facility], P 4 10:41:42 Surgical follow-up 025046037 Active 2023 Chalo Lacy MD [address], [place], [address] , [place] [facility], P 4 13:02:38 History of repair of hip joint 539977153 Active 2023 ASYA LY PA-C [address], [place], [address] , [place] [facility], P 4 14:02:36 Problem Notes None recorded. Procedures Surgical History Date Name Laterality Status Provider Name and Address Organization Details Recorded Time 05/11/19 24 TOTAL HIP ARTHROPLASTY (SURG) completed Saba Amos [place] [facility], P 05/15/2023 11:22:06 repair of ankle completed [facility] [place] [facility], P 12/16/2022 13:16:20 complete repair of rotator cuff completed [facility] [place] [facility], P 12/16/2022 13:16:55 Spine Surgery completed [facility] [place] [facility], P 12/16/2022 13:17:15 Hysterectomy completed [facility] [place] [facility], P 12/16/2022 13:17:26 procedure on gallbladder completed Corinna Rosario [place] [facility], P 01/11/2023 14:21:14 TOTAL HIP ARTHROPLASTY (SURG) completed Catarina Johan [facility], P 02/15/2023 16:27:08 Imaging Results None recorded. Procedure Notes None recorded. Medical Equipment None Reported. Allergies Allergen ID Allergen Name Allergen Category Reaction Reaction Severity Criticality Documentation Date Start Date Code Code System Note Provider Name and Address Organization Details Recorded Time 44011 Chantix medicatio n Not available Not available Not available 01/11/2023 17420 0 RxNorm Corinna Rosario [facility], [place] [facility], P 14:19:43 858038 diphenhyd ramine medicatio n hives Not available Not available 01/16/20252010 3498 RxNorm Not Available joann - External Data [employer] - prod 17:09:27 014489 morphine medicatio n Not available Not available Not available 01/16/20252024 7052 RxNorm Not Available [employer] External Data Service - prod 17:09:27 717772 sulfaceta mide sodium medicatio n rash Not available Not available 01/16/20252004 57204 RxNorm Not Available joann - External Data Service - prod 17:09:27 799284 lurasidon e medicatio n Not available Not available Not available 01/16/2025 12251 28 RxNorm Not Available [facility] External Data Service - prod 5 17:10:32 319778 sulfasala zine medicatio n Not available Not available Not available 01/16/2025 9524 RxNorm Not Available [facility] External Data Service - prod 5 17:10:32 52256 omeprazol e medicatio n Not available Not available Not available 11/19/20242017 7646 RxNorm Not Available [facility] 5 01:21:28 44067 clonidine medicatio n Not available Not available Not available 11/19/20242017 2599 RxNorm Not Available [facility] 5 01:21:28 80906 varenicli ne Not available Not available Not available Not available 11/19/20242017 43390 2 RxNorm Not Available [facility] 5 01:21:28 98187 pregabali n medicatio n Not available Not available Not available 11/19/20242017 78943 2 RxNorm Not Available [facility] 5 01:21:29 02684 diphenhyd ramine hydrochlo ride medicatio n Not available Not available Not available 11/19/20242017 1362 RxNorm Not Available [facility] 5 01:21:29 29606 gabapenti n medicatio n Not available Not available Not available 11/19/20242017 40883 RxNorm Not Available [facility] 5 01:21:29 9308 Substance with sulfonami de structure and antibacte rial mechanism of action (substanc e) medicatio n Not available Not available Not available 12/16/2022 36824 8003 SNOMED Aubrie Ficarra null, [place] [facility], [facility] 3 13:19:24 9309 codeine medicatio n Not available Not available Not available 12/16/2022 2670 RxNorm Aubrie Ficarra null, [place] [facility], P 3 13:19:41 9310 Lyrica medicatio n Not available Not available Not available 12/16/2022 87017 1 RxNorm Aubriecali Carrilloa null, [place] [facility], P 3 13:22:29 9311 Latuda medicatio n Not available Not available Not available 12/16/2022 97673 32 RxNorm Aubriecali Melendezarra null, [place] [facility], P 3 13:22:41 9312 Benadryl medicatio n Not available Not available Not available 12/16/2022 64001 7 RxNorm Aubriecali Melendezarra null, [place] - [facility], [facility] 3 13:22:58 Medications Name Sig Start [...] Updated DateTime 05/25/2023 170.18 cm 30.5 kg/m2 85110.[address] [facility] P 05/25/2023 11:08:24 Date Recorded Body height Body mass index (BMI) Body weight Provider Name and Address Organization Details Last Updated DateTime 06/23/2023 170.18 cm 30.5 kg/m2 47716.[address] [place] [facility] 06/23/2023 12:52:00 Date Recorded Body height Body mass index (BMI) Body weight Provider Name and Address Organization Details Last Updated DateTime 07/04/2024 170.18 cm 33.7 kg/m2 95806.[address] [place] [facility] 07/04/2024 12:55:42 Social History None recorded. Functional Status Question Answer Note LastModified by Organizat ion Details LastModified Time Do you use any illicit or recreational drugs? No Information not available 12/16/2022 What is your level of alcohol consumption? Occasional Information not available 12/16/2022 Mental Status None recorded. Family History Nothing Reported. Medical History Condition Response Anemia Y Vascular Disease Y Reflux/GERD Y Hyperthyroidism Y Cancer Y COPD Y Gynecological HistoryNo gynecological history recorded. Obstetrics History GPAL:G 0 P 0 0 0 0 Past Encounters Encounter ID Performer Location Encounter Start Date Encounter Closed Date Diagnosis/Indication Diagnosis SNOMED-CT Code Diagnosis ICD10 Code Diagnosis IMO Codes Diagnosis Note [id number] MD G[facility] [address] [facility] [address] [place] [address] 12/16/2022 12:45:32 12/16/2022 13:55:10 Pain of right hip joint 9520674424 65081 M25.551 Pain of le ft hip joint 8480646373 83987 M25.552 Osteoarthr itis of left hip joint 7071394641 60229 M16.12 Arthritis of hip 8991997 6 M13.859 [id number] [facility] [address] [facility] [address] [place] [address] 03/02/2023 10:11:48 03/02/2023 10:36:41 History of total replacement of left hip joint 8885234855 942964 Z96.642 [id number] MD GER[facility] [address] [address] 03/31/2023 09:52:11 03/31/2023 10:59:57 Osteoarthritis of right hip joint 2977862226 86663 M16.11 Arthritis of hip 0394337 6 M13.859 History of total replacement of left hip joint 3061397388 700978 Z96.642 [id number] J[facility]ENIA [facility] [address] [address] 05/25/2023 10:33:20 05/25/2023 11:21:14 History of total replacement of left hip joint 6762687469 583764 Z96.642 [id number] MD GERA [facility] [address] [facility] [address] [place] [address] 06/23/2023 12:45:50 06/23/2023 13:08:58 Surgical follow-up 798842753 Z47.1 Z96.641 Additional diagnosis detail: Aftercare following right hip joint replacemen t surgery [id number] JESENIA CARPENTER [facility] [address] [address] 08/18/2023 13:39:26 08/18/2023 14:04:22 History of repair of hip joint 661832485 Z96.641 Additional diagnosis detail: History of right hip replacemen t [id number] MD [facility] [address] [address] 07/04/2024 12:45:26 07/04/2024 13:12:19 History of total replacement of right hip joint 2976145889 09231 Z96.641 [id number] History of total replacement of left hip joint 6812505477 795350 Z96.642 Health Concerns Section Related Observation LastModified by Organization Detai ls LastModified Time None Recorded Concern Status LastModified by Organization Details LastModified Time None Recorded Advance Directives Directive None Recorded Payers Insurance Date Sequence Insurance Name Policy Number Policy Sandoval Covered Member ID Sandoval Member ID Guarantor Name 07/04/2024 2 [place] [facility] Ava Ibanez [id number] Ava Ibanez 07/04/2024 1 [place] [facility] Ava Ibanez [id number] Ava Ibanez OBGyn Episode No OBEpisode recorded.
--- OUTSIDE RECORDS SUMMARY | 2025-02-13 14:29 | XMS_ITS | Encounter Summary ---
Author Organization [facility] [place] [address] Care Team Providers Care Neurological Physiotherapist Name Role Phone Kyung Billy MD Primary Care Prov ider Encounter Details Date Type Department Care Team (Late st Contact Info) Description 07/23/2024 Nurse Triage Adult Medicine [address] [phone] Carmina Murphy RN Social History Tobacco Use [...] 3:13 PM EDT Antionette Nassar RN * Jay Suicide Severity Rating Scale (Screener/Recent Self-Report) Question [...] pain. She was an in patient at [facility] for 11 days and was discharged from there 07/22/24. She is going to [facility] today with her and daughter. 2. [...] from 12:00 pm on. Protocols used: Suicide [id number] documented in this encounter Plan of Treatment Upcoming Encounters Date Type Department Care Team (Late st Contact Info) Description 06/23/2025 11:30 AM EDT Office Visit Adult Medicine [address] [phone] Tamra Ray PA [address] [place] [address] documented as of this encounter Visit Diagnoses Not on filedocumented in this encounter Care Teams Neurological Physiotherapist Relationship Specialty Start Date End Date Kyung Billy MD [address] [place] [address] PCP - General Internal Medicine 09/27/21 documented as of this encounter
--- OUTSIDE RECORDS SUMMARY | 2025-02-13 14:29 | XMS_ITS | Encounter Summary ---
Author Organization [facility] Address [address] [place] [address] Care Team Providers Care Traffic Supervisor Name Role Phone Kyung Billy MD Primary Care Prov ider Reason for Visit * Reason Onset Date Comments Constipation 01/16/2025 Abdominal Pain 01/16/2025 Encounter Details Date Type Department Care Team (Late st Contact Info) Description 01/16/2025 Telephone Adult Medicine [facility] [address], [place] [phone] Tamra Ray PA [address] [place], [place] Social History Tobacco Use Types Packs/Day [...] for your loved ones. For example, child care centre manager or elderly care for an older adult? [...] Bobby Flores RN documented in this encounter Ordered Prescriptions Prescription Sig Dispense Quantity Refills Last Filled Start Date End Date bisacodyL (DULCOLAX) 5 mg EC tablet Take 1 tablet (5 mg total) by mouth 1 (one) time each day if needed for constipation . Do not crush, chew, or split. 10 tablet 01/16/2025 01/31/2025 documented in this encounter Progress Notes * Bridgette Barnes RN - 01/16/2025 10:33 AM EST Pt. States hasn't had any bm other then a small hard nugget yesterday , normal color very very small. Last BM prior to that was 4 days ago small thin soft brown in color and larger then the one yesterday but still small amount . Pt.'s normal pattern is once a day with the Bisacodyl she was taking 2tabs but then had a accident in bed , it was reduced to one tab. When rx ran out pt. Did not fill it and now constipation is back and hasn't gone x 4 days other then small nugget. At present time , pt. Has heating pad on abd. Because of pain 06/06 abd. Is hard , pt. Has not passed gas today but did yesterday . She is nauseated states that is not new At present No cp, no chest pressure, no sob, lightheadedness or weakness . Advised to be evaluated in the ER. For her symptoms. Pt. agrees and will have someone take her * LINDSEY Hickman - 01/16/2025 10:23 AM EST Rx sent * Nena Castillo RN - 01/16/2025 9:50 AM EST Call to pt spoke to pt Pt . Has noticed when her med changed, Unable to have a bm, x 4 days, Pt was having diarrhea , so dulcolax was d/c pt taking Miralax not having good results, Bloating , passing gas, some nausea, no vomiting, Pt asking if she can take one tab a day of the bisacodyl, Pt triaged of constipation Pt agreed But is asking to go back on the Bisacodyl even at a half dose on one tab. Dr Carli keita in Pt last seen on 12/20/24 with pcp * Yessi Hudson - 01/16/2025 9:09 AM EST Patient call requires triage: Symptoms patient is presenting: constipation x 4 days. Patient is reporting some abdominal pain, only had a very small BM, small ball and some gas yesterday. Taking Miralax, used to take a prescription med but was taken off of that. Miralax is not helping. Last significant BM was 4 days ago. How long has patient had these symptoms?: 4 days For ALL patients calling to schedule any appointment (routine, sick visit, follow up, consult, etc.) in the outpatient setting please ask the following questions: Do you have fever of higher than 101, sore throat with difficulty swallowing or severe shortness ofbreath? no If YES to any of these above symptoms, send a message to triage and do not book. Red dot. If no, an audio or video visit should be booked. Have you had close contact with someone with Coronavirus in the last 14 days? no Have you traveled abroad? no Have you traveled recently to another state outside of [place], [place], [place], [place], [place], [place], [place]? no o If yes, did you quarantine for 14 days or have a negative covid test? no If yes to any of the above, patient is not to be scheduled in office until after 14 day quarantine or negative covid test. If pain or injury related was it due to an accident at work or from a motor vehicle accident? If yes, date of accident/Injury: No If yes, gather 3rd constitution party insurance information [employer] Party Information: not applicable PCP: Kyung Jeffers MD Payor: MEDICARE / Plan: MEDICARE PART A & B / Product Type: Medicare / documented in this encounter Plan of Treatment Upcoming Encounters Date Type Department Care Team (Late st Contact Info) Description 06/23/2025 11:30 AM EDT Office Visit Adult Medicine [address] [phone] Tamra Ray PA [address] [place] [address] documented as of this encounter Visit Diagnoses Not on filedocumented in this encounter Additional Health Concerns Assessment Noted Time PHQ-9 Depression Total Score: 19 025 12:54 PM EDT documented as of this encounter Care Teams Traffic Supervisor Relationship Specialty Start Date End Date Kyung Billy MD [address] [place] [address] PCP - General Internal Medicine 09/27/21 documented as of this encounter
== END 2025-02-13 11:56 | disposition home or self-care (01) ==
LOC: HO.HPHYS 11:04
PROVIDERS: PCP Internal Medicine; Visit Provider Physical Medicine & Rehabilitation
DX: M53.3 Sacrococcygeal disorders, not elsewhere classified (principal); G89.29 Other chronic pain; M62.838 Other muscle spasm
CPT/HCPCS: 99204; G2211

== ENCOUNTER → 2025-02-13 11:03 | Outpatient (BNVA) | payer MEDICARE, MEDICAID, SELFPAY | PROVIDERS: PCP Internal Medicine; Visit Provider Physical Medicine & Rehabilitation | DX: M53.3 Sacrococcygeal disorders, not elsewhere classified (principal); G89.29 Other chronic pain; M62.838 Other muscle spasm; Z91.81 History of falling; Z87.891 Personal history of nicotine dependence; Z85.118 Personal history of other malignant neoplasm of bronchus and lung | CPT/HCPCS: 99202 ==